=== PATIENT | female | born 1950 | race Caucasian/White ===

== ENCOUNTER 2017-07-25 12:14 | Inpatient (IN) | payer MEDICARE ==
[~2017-07-25] VITALS: Ht 157.5 cm; Wt 65.0 kg
--- NOTE | 2017-07-25 12:20 | NUR ---
AAOX3, [id number] FROM HOME FOR SOB, HYPOXIC IN THE FIELD AT 60'S %, BREATHING TX X1 HYPERTENSIVE 197/96, NITRO X 2 GIVEN BS-148. TACHYPNEIC AND LABORED BREATHING. SKIN IS WARM AND DRY. DR GUTIERREZ AT BS FOR EVAL. PLACED ON THE MONITOR.
[2017-07-25 12:51] LABS: EOSINOPHILS # (AUTO) 0.3 /CMM (0.0-0.7); HEMATOCRIT 42 % (33-45); HEMOGLOBIN 13.9 g/dL (11.5-14.8); LYMPHOCYTES # (AUTO) 2.4 /CMM (0.8-4.8); MEAN CORPUSCULAR HEMOGLOBIN 29 PG (26.0-33.0); MEAN CORPUSCULAR HGB CONC 34 g/dl (31.0-36.0); MEAN CORPUSCULAR VOLUME 87 fL (82-100); PLATELET COUNT (AUTO) 294 /CMM (150-450); RED BLOOD CELL COUNT(AUTO) 4.77 MIL/uL (4.0-5.2)
[2017-07-25 12:54] LABS: BASOPHILS % (AUTO) 0.2 % (0.0-2.0); EOSINOPHILS % (AUTO) 1.6 % (0.0-6.0); LYMPHOCYTES % (AUTO) 12.9 % (20.0-44.0); MONOCYTES # (AUTO) 0.8 /CMM (0.1-1.30); MONOCYTES % (AUTO) 4.3 % (2.0-12.0); NEUTROPHILS # (AUTO) 14.9 /CMM (1.8-8.9); RDW COEFFICIENT OF VARIATION 14.5 (11.5-15.0); WHITE BLOOD COUNT (AUTO) 18.4 K/uL (4.3-11.0)
[2017-07-25] MEDS ORDERED: methylPREDNISolone SOD SUCC 125 MG/2ML VIAL ONE (12:55)
[2017-07-25] MEDS ORDERED: methylPREDNISolone SOD SUCC 125 MG/2ML VIAL IV ONE (13:00)
[2017-07-25] MEDS ORDERED: ALBUTEROL FS 2.5 MG/3 ML VIAL.NEB CONTNEB ONE (13:00)
--- NOTE | 2017-07-25 13:00 | NUR ---
BREATHING TREATMENT AT
[2017-07-25 13:01] LABS: CALCIUM, SERUM 9.4 mg/dL (8.5-10.1); CARBON DIOXIDE 34 mmol/L (21-32); CHLORIDE 100 mmol/L (98-107); CREATININE 0.8 mg/dL (0.6-1.3); GLUCOSE 208 mg/dL (74-106); POTASSIUM 3.5 mmol/L (3.5-5.1); SODIUM SERUM 138 mmol/L (136-145); UREA NITROGEN, BLOOD 10 mg/dL (7-18)
[2017-07-25] MEDS ORDERED: ALBUTEROL FS 2.5 MG/3 ML VIAL.NEB ONE ×2 (13:01→14:58)
[2017-07-25 13:09] LABS: TROPONIN I < 0.017 ng/mL (0.00-0.056)
[2017-07-25 13:16] LABS: B-TYPE NATRIURETIC PEPTIDE 433 PG/ML (0-125)
[2017-07-25] MEDS ORDERED: LEVOFLOXACIN 750 MG /D5W 150ML 150 ML IV ONE ×2 (13:28→13:30)
[2017-07-25] MEDS ORDERED: ENALAPRILAT DIHYD. (2.5MG/ML) 1.25 MG/ML VIAL IV ONE (13:28)
[2017-07-25] MEDS ORDERED: ENALAPRILAT INJ (1.25 MG/ML) 1.25 MG/ML VIAL IV PRN (13:30)
[2017-07-25] MEDS ORDERED: LABETALOL 20 MG/4 ML VIAL IV ONE (13:30)
[2017-07-25] MEDS ORDERED: ALBU8.5H8 INH (14:02)
[2017-07-25] MEDS ORDERED: ATOR10TA PO (14:02)
[2017-07-25] MEDS ORDERED: ASPI-1152 PO (14:02)
[2017-07-25] MEDS ORDERED: FLUT1BLS IH (14:02)
--- NOTE | 2017-07-25 14:57 | NUR ---
BREATHING TREATMENT AT
[2017-07-25] MEDS ORDERED: IPRATROPIUM NEB FS 0.5 MG/2.5 ML AMPUL.NEB ONE (14:58)
[2017-07-25] MEDS ORDERED: IV NS 0.9% 500 ML BAG IV ONE ×2 (15:00→17:00)
[2017-07-25] MEDS ORDERED: IPRATROPIUM NEB FS 0.5 MG/2.5 ML AMPUL.NEB NEB ONE (15:00)
[2017-07-25] MEDS ORDERED: ALBUTEROL FS 2.5 MG/3 ML VIAL.NEB NEB ONE ×2 (15:00→17:00)
[2017-07-25 15:57] LABS: BAND % (MANUAL) 2 % (0.0-5.0); LYMPHOCYTES % (MANUAL) 15 % (16-48); MONOCYTES % (MANUAL) 5 % (0-11.0); NEUTROPHILS % (MANUAL) 76 (42-76); REACTIVE LYMPHOCYTES 2 % (0-0)
[2017-07-25] MEDS ORDERED: ACETAMINOPHEN 325 MG TABLET PO PRN (16:30)
[2017-07-25] MEDS ORDERED: ZOLPIDEM TARTRATE 5 MG TABLET PO PRN (16:30)
[2017-07-25] MEDS ORDERED: HYDROCODONE/APAP 5/325MG 1 EACH TABLET PO PRN (16:30)
[2017-07-25] MEDS ORDERED: ONDANSETRON HCL/PF 4 MG/2 ML VIAL IVP PRN (16:30)
[2017-07-25] MEDS ORDERED: MAG HYDROX/AL HYDROX/SIMETH 30 ML UDC PO PRN (16:30)
[2017-07-25] MEDS ORDERED: MAGNESIUM HYDROXIDE 30 ML UDC PO PRN (16:30)
[2017-07-25] MEDS: IPRATROPIUM NEB FS 0.5 MG/2.5 ML AMPUL.NEB NEB SCH ×2 (17:00→20:57)
[2017-07-25] MEDS: ALBUTEROL FS 2.5 MG/3 ML VIAL.NEB NEB SCH (17:00)
--- NOTE | 2017-07-25 17:20 | NUR ---
REPORT GIVEN TO LETITIA HOLLAND FOR CHELSY TELE [id number]
--- NOTE | 2017-07-25 17:20 | NUR ---
RECEIVED TELEPHONE SBAR REPORT ON THE PATIENT FROM ER
--- NOTE | 2017-07-25 17:35 | NUR ---
PATIENT ARRIVED TO THE UNIT VIA GURNEY.PATIENT IS ALERT/ORIENTED X4, FAMILY AT THE BEDSIDE. SKIN IS INTACT. DENIES PAIN AT THIS TIME. SPO2 93% ON 5L VIA FACE MASK. CHEST RISING EQUALLY BILATERALLY. VS WNL. ALL NEEDS ARE MET AT THIS TIME. PATIENT IS IN BED. BED IS LOCKED IN LOWEST POSITION, SIDE RAILS UP X3, BED ALARM IS ON. CALL LIGHT PATIENT/FAMILY EDUCATED TO USE THE CALL LIGHT TO CALL FOR ASSISTANCE. VERBALIZED UNDERSTANDING. WILL CONTINUE TO ASSESS/MONITOR.
[2017-07-25 17:45] VITALS: BP 155/67
--- NOTE | 2017-07-25 19:30 | NUR ---
RN NOTES RECEIVED PATIENT IN BED AWAKE, AO X 3, ABLE TO MAKE NEEDS KNOWN. NO ACUTE DISTRESS NOTED. DENIES ANY PAIN AT THIS TIME. SINUS TACH HR 127. IV SITE PATENT, INTACT; FLUSHED. SAFETY REMINDERS GIVEN. ON LOW BED WITH BILATERAL UPPER SIDE RAILS UP. CALL RACHEL WITHIN EASY REACH. WILL CONTINUE TO MONITOR.
[2017-07-25 20:00] VITALS: BP 152/78
--- NOTE | 2017-07-25 20:00 | NUR ---
MS RN CLOSING NOTE SBAR REPORT GIVEN TO THE STONE DRILLER NURSE. PATIENT IS ALERT/ORIENTED X4, FAMILY AT THE BEDSIDE. SKIN IS INTACT. DENIES PAIN AT THIS TIME. SPO2 93% ON 5L VIA FACE MASK. CHEST RISING EQUALLY BILATERALLY. VS WNL. ALL NEEDS ARE MET AT THIS TIME. PATIENT IS IN BED. BED IS LOCKED IN LOWEST POSITION, SIDE RAILS UP X3, BED ALARM IS ON. CALL LIGHT PATIENT/FAMILY EDUCATED TO USE THE CALL LIGHT TO CALL FOR ASSISTANCE. VERBALIZED UNDERSTANDING. ENDORSED TO THE STONE DRILLER FOR CHELSY.
[2017-07-25 20:46] VITALS: BP 152/78
[2017-07-25] MEDS: ATORVASTATIN 10 MG TABLET PO SCH (22:00)
[2017-07-26 00:24] VITALS: BP 163/82
--- NOTE | 2017-07-26 00:24 | NUR ---
RN NOTES PATIENT'S HR HAS REACHED 134 SINUS TACH. PER PATIENT, HER HR AT HOME IS 120-130S. DR. ANTUNEZ MADE AWARE WITH NO NEW ORDERS. WILL CONTINUE TO MONITOR.
[2017-07-26] MEDS: ALBUTEROL FS 2.5 MG/3 ML VIAL.NEB NEB SCH ×8 (00:50→23:23)
[2017-07-26] MEDS: IPRATROPIUM NEB FS 0.5 MG/2.5 ML AMPUL.NEB NEB SCH ×7 (00:50→23:23)
[2017-07-26 04:00] VITALS: BP 163/75
--- NOTE | 2017-07-26 06:00 | NUR ---
RN NOTES PATIENT AWAKE, RESPIRATIONS EVEN. DENIES ANY PAIN AT THIS TIME. NEEDS ATTENDED. SAFETY PRECAUTIONS AND COMFORT MEASURES IN PLACE. WILL GIVE REPORT TO DAY SHIFT FOR CONTINUITY OF CARE.
--- NOTE | 2017-07-26 07:30 | NUR ---
RN OPEN NOTES RECEIVED REPORT FROM SENIOR CARE SPECIALIST NURSE. PATIENT IS IN BED, AWAKE. ALERT AND ORIENTED TO NAME, PLACE AND TIME. PLACED PATIENT ON 2L NC, 99% SATURATION. NO SIGNS AND SYMPTOMS OF DISTRESS. BREATHING IS BILATERALLY EVEN AND UNLABORED. BED IN LOW POSITION, LOCKED AND TWO SIDE RAILS ARE UP. CALL LIGHT WITHIN REACH FOR SAFETY. WILL CONTINUE TO MONITOR AND ASSESS PATIENT THROUGH OUT MY SHIFT
[2017-07-26 08:00] VITALS: BP 134/85
[2017-07-26] MEDS: ASPIRIN EC 81 MG TABLET.DR PO SCH (08:48)
[2017-07-26] MEDS: AZITHROMYCIN 250 MG TABLET PO SCH (08:48)
[2017-07-26] MEDS ORDERED: methylPREDNISolone SOD SUCC 40 MG/ML VIAL IV SCH (09:00)
[2017-07-26 09:07] LABS: EOSINOPHILS % (AUTO) 0.1 % (0.0-6.0); HEMATOCRIT 37 % (33-45); HEMOGLOBIN 12.6 g/dL (11.5-14.8); LYMPHOCYTES # (AUTO) 0.4 /CMM (0.8-4.8); LYMPHOCYTES % (AUTO) 4.5 % (20.0-44.0); MEAN CORPUSCULAR HEMOGLOBIN 30 PG (26.0-33.0); MEAN CORPUSCULAR HGB CONC 34 g/dl (31.0-36.0); MEAN CORPUSCULAR VOLUME 89 fL (82-100); MONOCYTES # (AUTO) 0.5 /CMM (0.1-1.30); MONOCYTES % (AUTO) 4.6 % (2.0-12.0); NEUTROPHILS # (AUTO) 8.9 /CMM (1.8-8.9); NEUTROPHILS % (AUTO) 90.8 % (43.0-81.0); PLATELET COUNT (AUTO) 203 /CMM (150-450); RDW COEFFICIENT OF VARIATION 16.3 (11.5-15.0); RED BLOOD CELL COUNT(AUTO) 4.19 MIL/uL (4.0-5.2); WHITE BLOOD COUNT (AUTO) 9.8 K/uL (4.3-11.0)
[2017-07-26 09:42] LABS: CALCIUM, SERUM 9.2 mg/dL (8.5-10.1); CREATININE 0.6 mg/dL (0.6-1.3); MAGNESIUM 2.1 mg/dL (1.8-2.4); PHOSPHORUS 2.4 mg/dL (2.5-4.9); POTASSIUM 3.7 mmol/L (3.5-5.1)
--- NOTE | 2017-07-26 10:45 | NUR ---
PATIENT DESATURATING TO 78%. PATIENT PLACED ON MASK 6L AND SATURATING 95%. MD NOTIFIED. ABG ORDERED
--- NOTE | 2017-07-26 11:00 | NUR ---
RT TECH AT BEDSIDE TO DRAW ABG
[2017-07-26 11:13] LABS: ABG BASE EXCESS 3.5 mmol/L; ABG OXYGEN SATURATION 97.8 % (92.0-98.5); ABG PH 7.275 (7.350-7.450); ABG PO2 129.9 mmHg (75.0-100.0); AaDO2 73.7 mmHg; COHb 0.6 % (0.5-1.5); MetHb 0.9 % (0.0-1.5); O2Hb 96.3 % (94.0-97.0); SITE, ABG Right Radial; VENT MODE, BG SM 5 L
--- NOTE | 2017-07-26 11:15 | NUR ---
ABG RESULT COMMUNICATED TO MD DR LEIGH. REPEAT ABG AT 1500
[2017-07-26 12:00] VITALS: BP 149/75
[2017-07-26] MEDS ORDERED: K PHOS NEUTRAL 250 MG TABLET PO ONE (13:30)
--- NOTE | 2017-07-26 15:00 | NUR ---
RT TECH AT BEDSIDE TO DRAW ABG
[2017-07-26 15:12] LABS: ABG BASE EXCESS 8.4 mmol/L; ABG OXYGEN SATURATION 93.8 % (92.0-98.5); ABG PH 7.382 (7.350-7.450); ABG PO2 67.4 mmHg (75.0-100.0); AaDO2 74.8 mmHg; COHb 0.1 % (0.5-1.5); MetHb 0.8 % (0.0-1.5); SITE, ABG Right Radial; VENT MODE, BG NC 4L
--- NOTE | 2017-07-26 15:15 | NUR ---
G RESULTED AND COMMUNICATED TO DR LEIGH
[2017-07-26 16:00] VITALS: BP 135/68
[2017-07-26] MEDS: methylPREDNISolone SOD SUCC 40 MG/ML VIAL IV SCH (16:23)
--- NOTE | 2017-07-26 18:38 | NUR ---
RN CLOSED NOTES PATIENT IS IN BED, AWAKE. ALERT AND ORIENTED TO NAME, PLACE AND TIME. FAMILY MEMBER AT BEDSIDE. NO SIGNS AND SYMPTOMS OF DISTRESS. BREATHING IS BILATERALLY EVEN AND UNLABORED (IMPROVEMENT FROM EARLY AM). BED IN LOW POSITION, LOCKED AND TWO SIDE RAILS ARE UP. CALL LIGHT WITHIN REACH FOR SAFETY. WILL ENDORSE TO MACHINE PACKAGE SEALER NURSE
--- NOTE | 2017-07-26 19:25 | NUR ---
TELE/RN NOTES RECEIVED PT. SITTING UP IN BED. AWAKE, ALERT AND ORIENTED X4. BREATHING EVEN AND UNLABORED ON 4LPM O2 VIA NC. NO SOB, RESPIRATORY DISTRESS OR COMPLAINTS OF PAIN NOTED AT THIS TIME. PT. WITH EXTERNAL DOLL EYE SETTER PRESENT AND INTACT CURRENT RHYTHM = SINUS TACH HR 114. PT. WITH RIGHT AC 20 GAUGE IV SALINE LOCK PRESENT, PATENT AND INTACT. PT. WITH FAMILY MEMBER PRESENT AT BEDSIDE. BED LOCKED AND IN LOWEST POSITION, SIDE RAILS UP X2, CALL LIGHT WITHIN REACH, WILL CONTINUE TO MONITOR.
[2017-07-26 20:00] VITALS: BP 151/86
[2017-07-26] MEDS: ATORVASTATIN 10 MG TABLET PO SCH (21:59)
[2017-07-27] VITALS (10 sets, daily range): BP systolic 73–148; BP diastolic 32–92
[2017-07-27] MEDS: ALBUTEROL FS 2.5 MG/3 ML VIAL.NEB NEB SCH ×3 (03:22→13:00)
[2017-07-27] MEDS: IPRATROPIUM NEB FS 0.5 MG/2.5 ML AMPUL.NEB NEB SCH ×5 (03:22→20:05)
--- NOTE | 2017-07-27 06:46 | NUR ---
TELE/RN NOTES PT. IS SITTING UP IN BED RESTING. BREATHING EVEN AND UNLABORED ON 4LPM O2 VIA NC. NO SOB, RESPIRATORY DISTRESS OR COMPLAINTS OF PAIN NOTED AT THIS TIME. PT. WITH EXTERNAL LICENSING WORKER PRESENT AND INTACT CURRENT RHYTHM = SINUS TACH HR 117. PT. WITH RIGHT AC 20 GAUGE IV SALINE LOCK PRESENT, PATENT AND INTACT. ALL PT. NEEDS MET. PT. WITH FAMILY MEMBER PRESENT AT BEDSIDE. BED LOCKED AND IN LOWEST POSITION, SIDE RAILS UP X2, CALL LIGHT WITHIN REACH, WILL ENDORSE TO DAYSHIFT NURSE FOR CONTINUITY OF CARE.
--- NOTE | 2017-07-27 07:45 | NUR ---
RN OPEN NOTES RECEIVED REPORT FROM SHAFTING CLEANER NURSE. PATIENT IS IN BED, AWAKE. ALERT AND ORIENTED TO NAME, PLACE AND TIME. PLACED PATIENT ON 3L NC, 92% SATURATION. NO SIGNS AND SYMPTOMS OF DISTRESS. BREATHING IS BILATERALLY EVEN AND UNLABORED. BED IN LOW POSITION, LOCKED AND TWO SIDE RAILS ARE UP. CALL LIGHT WITHIN REACH FOR SAFETY. WILL CONTINUE TO MONITOR AND ASSESS PATIENT THROUGH OUT MY SHIFT
[2017-07-27] MEDS: AZITHROMYCIN 250 MG TABLET PO SCH (08:49)
[2017-07-27] MEDS: ASPIRIN EC 81 MG TABLET.DR PO SCH (08:50)
[2017-07-27] MEDS: methylPREDNISolone SOD SUCC 40 MG/ML VIAL IV SCH ×2 (08:50→16:21)
[2017-07-27 09:10] LABS: EOSINOPHILS # (AUTO) 0.1 /CMM (0.0-0.7); EOSINOPHILS % (AUTO) 0.6 % (0.0-6.0); HEMATOCRIT 33 % (33-45); HEMOGLOBIN 11.4 g/dL (11.5-14.8); LYMPHOCYTES # (AUTO) 0.4 /CMM (0.8-4.8); LYMPHOCYTES % (AUTO) 2.5 % (20.0-44.0); MEAN CORPUSCULAR HEMOGLOBIN 30 PG (26.0-33.0); MEAN CORPUSCULAR HGB CONC 34 g/dl (31.0-36.0); MEAN CORPUSCULAR VOLUME 89 fL (82-100); MONOCYTES # (AUTO) 0.5 /CMM (0.1-1.30); MONOCYTES % (AUTO) 3.6 % (2.0-12.0); NEUTROPHILS # (AUTO) 13.6 /CMM (1.8-8.9); NEUTROPHILS % (AUTO) 93.3 % (43.0-81.0); PLATELET COUNT (AUTO) 238 /CMM (150-450); RDW COEFFICIENT OF VARIATION 15.9 (11.5-15.0); RED BLOOD CELL COUNT(AUTO) 3.77 MIL/uL (4.0-5.2); WHITE BLOOD COUNT (AUTO) 14.6 K/uL (4.3-11.0)
[2017-07-27 10:05] LABS: CREATININE 0.6 mg/dL (0.6-1.3); POTASSIUM 3.4 mmol/L (3.5-5.1)
--- NOTE | 2017-07-27 13:41 | NUR ---
RT PATIENT REFUSED TX AT THIS TIME. SP02 @ 97%, HR 115. NO SOB NOTED.
--- NOTE | 2017-07-27 16:53 | NUR ---
PATIENT REFUSED TX AT THIS TIME. SP02 @ 94%, HR 117. NURSE, STEPHY KEARNS. NO SOB NOTED.
[2017-07-27] MEDS ORDERED: SALINE NASAL SPRAY 0.65% 1 BOTTLE BOTTLE NS PRN (17:00)
[2017-07-27] MEDS ORDERED: IV 1/2NS 1000 ML 1,000 ML IV SCH ×2 (17:00→23:18)
--- NOTE | 2017-07-27 18:57 | NUR ---
RN CLOSED NOTES PATIENT IS IN BED, AWAKE. ALERT AND ORIENTED TO NAME, PLACE AND TIME. FAMILY MEMBER AT BEDSIDE. NO SIGNS AND SYMPTOMS OF DISTRESS. BREATHING IS BILATERALLY EVEN AND UNLABORED (IMPROVEMENT FROM EARLY AM). BED IN LOW POSITION, LOCKED AND TWO SIDE RAILS ARE UP. CALL LIGHT WITHIN REACH FOR SAFETY. WILL ENDORSE TO BEAUTY OPERATOR APPRENTICE NURSE
--- NOTE | 2017-07-27 19:20 | NUR ---
MS/RN NOTES RECEIVED PT. SITTING UP IN BED. AWAKE, ALERT AND ORIENTED X3. BREATHING EVEN AND UNLABORED ON 3LPM O2 VIA NC. NO SOB, RESPIRATORY DISTRESS OR COMPLAINTS OF PAIN NOTED AT THIS TIME. PT. WITH RIGHT AC 20 GAUGE IV SALINE LOCK PRESENT, PATENT AND INTACT ADMINISTERING TO PT. 1/2 NS @ 75 ML/HR. PT. WITH FAMILY MEMBERS PRESENT AT BEDSIDE. BED LOCKED AND IN LOWEST POSITION, SIDE RAILS UP X2, CALL LIGHT WITHIN REACH, WILL CONTINUE TO MONITOR.
--- NOTE | 2017-07-27 20:40 | NUR ---
MS/RN NOTES PT. RECENTLY FINISHED BREATHING TREATMENT AND IS COMPLAINING OF SHORTNESS OF BREATH ON 4LPM O2 VIA NC. PLACED PT. ON O2 MASK @6LPM. PT. O2 SAT IS SLOWLY INCREASING TO 92%. WILL CONTINUE TO MONITOR.
--- NOTE | 2017-07-27 20:55 | NUR ---
MS/RN NOTES PT. IS ON O2 MASK @ 8LPM O2 SAT 94% PT. STILL APPEARS TO HAVE DIFFICULTY BREATHING. PT. HEART RATE IS ELEVATED 140'S-151. CALLED [facility] PHYSICAL METALLURGIST DR. LAST TO NOTIFY HER OF PT. CONDITION, PER PHYSICAL METALLURGIST SERVICE DR. LAST WILL BE PAGED. AWAITING CALL BACK FROM DR. LAST. WILL CONTINUE TO MONITOR PT.
--- NOTE | 2017-07-27 21:02 | NUR ---
MS/RN NOTES PT. IS HAVING SHORTNESS OF BREATH AND IS IN RESPIRATORY DISTRESS ON O2 MASK @ 10LPM AND IS DESATTING TO 85%. CALLED [facility]PON[facility]. PLACED PT. ON TELE MONITOR CURRENT RHYTHM = SINUS TACHYCARDIA PT. BLOOD SUGAR IS 224 MG/DL. PT. VITAL SIGNS = BP 164/80, HR 151, O2 SAT 99% ON 15 LPM NON REBREATHER MASK. RR 38. SPOKE WITH DR. LAST AND NOTIFIED HER OF PT. CONDITION AND THAT [facility] RESPON[facility] WAS CALLED. PER DR. LAST NEW ORDERS: STAT ABG AND STAT CHEST XRAY. WILL CARRY OUT ORDERS. WILL CONTINUE TO MONITOR.
--- NOTE | 2017-07-27 21:30 | NUR ---
MS/RN NOTES NOTIFIED DR. LAST PT. ABG RESULTS PH 7.218 PCO2 117.2, PO2 = 76.3 PT. O2 SAT 99% ON NON-REBREATHER MASK @ [address] LAST NEW ORDERS: TRANSFER PT. TO ICU FOR BIPAP. WILL CARRY OUT ORDERS. TRANSFERRED PT. TO ICU ROOM 265 VIA GURNEY FOLLOWING ACLS PROTOCOL ACCOMPANIED BY CHARGE NURSE AND CONSULTING TECHNICAL DIRECTOR. PT. BELONGINGS AND CHART PRESENT ON BED. GAVE REPORT AND ENDORSED PT. TO LETITIA ECHOLS FOR CONTINUITY OF CARE.
--- NOTE | 2017-07-27 21:32 | NUR ---
WARP DYEING VAT TENDER RCD PT FROM 3W S/P DEMAND MANAGER; PENDING ORDERS FROM . CALL PLACED TO DR LAST. DARLYN CALLED FOR CXR RESULTS. PT PLACED ON BIPAP BY RT 25/ 16 75%. HR 145. FAMILY AT BEDSIDE.
[2017-07-27 21:36] LABS: ABG BASE EXCESS 13.7 mmol/L; ABG OXYGEN SATURATION 92.1 % (92.0-98.5); ABG PCO2 117.2 mmHg (35.0-45.0); ABG PH 7.218 (7.350-7.450); ABG PO2 76.3 mmHg (75.0-100.0); AaDO2 222.6 mmHg; COHb 0.2 % (0.5-1.5); MetHb 1.1 % (0.0-1.5); O2Hb 90.9 % (94.0-97.0); SITE, ABG Right Radial; VENT MODE, BG Simple Mask
[2017-07-27] MEDS: ATORVASTATIN 10 MG TABLET PO SCH (21:42)
--- NOTE | 2017-07-27 21:56 | NUR ---
STADIUM MANAGER DR LAST AT BEDSIDE TO EVALUATE PT; ORDERS RECEIVED. MD S/W FAMILY REGARDING PLAN OF CARE.
[2017-07-27] MEDS ORDERED: FUROSEMIDE 40 MG/4 ML VIAL IV ONE (22:00)
[2017-07-27] MEDS ORDERED: FUROSEMIDE 40 MG/4 ML VIAL ONE (22:18)
--- NOTE | 2017-07-27 22:18 | NUR ---
MOUSE BREEDER DUARTE CATHETER INSERTED 350 ML YELLOW URINE W/SEDIMENT.
--- NOTE | 2017-07-27 22:40 | NUR ---
PEDIATRICS PHYSICIAN PER DR SHALA LUNA MD TO INTUBATE. PT RADHA MORELAND [phone] AND LUIS EDUARDO BURKS [phone] AGREE WITH PLAN OF CARE.
[2017-07-27] MEDS ORDERED: ETOMIDATE 2 MG/ML VIAL ONE (22:54)
[2017-07-27] MEDS ORDERED: ROCURONIUM BROMIDE 50 MG/5 ML ONE (22:54)
[2017-07-27] MEDS ORDERED: ENOXAPARIN SODIUM 40 MG/0.4 ML DISP.SYRIN SQ SCH (23:00)
[2017-07-27] MEDS ORDERED: PROPOFOL 100 ML IV PRN (23:00)
[2017-07-27] MEDS ORDERED: PROPOFOL 100 ML ONE (23:15)
[2017-07-27] MEDS ORDERED: ENOXAPARIN SODIUM 40 MG/0.4 ML DISP.SYRIN SQ ONE (23:15)
[2017-07-28] VITALS (50 sets, daily range): BP systolic 69–131; BP diastolic 29–83
[2017-07-28 00:50] LABS: ABG BASE EXCESS 12.9 mmol/L; ABG PCO2 43.3 mmHg (35.0-45.0); ABG PH 7.548 (7.350-7.450); ABG PO2 487.8 mmHg (75.0-100.0); AaDO2 181.9 mmHg; COHb 0.4 % (0.5-1.5); MetHb 1.2 % (0.0-1.5); SITE, ABG Right Radial; VT, ABG 450 mL
[2017-07-28] MEDS: IPRATROPIUM NEB FS 0.5 MG/2.5 ML AMPUL.NEB NEB SCH ×6 (01:00→23:54)
[2017-07-28 05:17] LABS: HEMATOCRIT 32 % (33-45); HEMOGLOBIN 10.9 g/dL (11.5-14.8); LYMPHOCYTES # (AUTO) 0.4 /CMM (0.8-4.8); LYMPHOCYTES % (AUTO) 3.1 % (20.0-44.0); MEAN CORPUSCULAR HEMOGLOBIN 30 PG (26.0-33.0); MEAN CORPUSCULAR HGB CONC 34 g/dl (31.0-36.0); MEAN CORPUSCULAR VOLUME 89 fL (82-100); MONOCYTES # (AUTO) 0.5 /CMM (0.1-1.30); NEUTROPHILS # (AUTO) 12.6 /CMM (1.8-8.9); NEUTROPHILS % (AUTO) 92.9 % (43.0-81.0); PLATELET COUNT (AUTO) 233 /CMM (150-450); RDW COEFFICIENT OF VARIATION 16.1 (11.5-15.0); RED BLOOD CELL COUNT(AUTO) 3.63 MIL/uL (4.0-5.2); WHITE BLOOD COUNT (AUTO) 13.6 K/uL (4.3-11.0)
[2017-07-28 05:40] LABS: CALCIUM, SERUM 8.7 mg/dL (8.5-10.1); CREATININE 1.3 mg/dL (0.6-1.3); MAGNESIUM 2.1 mg/dL (1.8-2.4); PHOSPHORUS 1.1 mg/dL (2.5-4.9); POTASSIUM 3.8 mmol/L (3.5-5.1)
--- NOTE | 2017-07-28 07:33 | NUR ---
RT PATIENT RECEIVED ON MECHANICAL VENTILATION OF AC 16, 450, 40%, +5. SUCTION DONE, ETT TUBE SECURED AND PATENT. ALARMS ON AND AUDIBLE. PATIENT STABLE. WILL MONITOR T/O SHIFT. Addendum: 07/28/17 at 1041 by COLLEEN STOREY RT Amended: Links added. Addendum: 07/28/17 at 1754 by COLLEEN STOREY RT PATIENT RECEIVED ON 7.5 ETT TUBE @ 23 LIP LINE.
[2017-07-28] MEDS ORDERED: PROPOFOL 10MG/ML 50ML 50 ML IV PRN (08:00)
[2017-07-28] MEDS: AZITHROMYCIN 250 MG TABLET PO SCH (09:00)
[2017-07-28] MEDS: ASPIRIN EC 81 MG TABLET.DR PO SCH (09:00)
[2017-07-28] MEDS ORDERED: FAMOTIDINE/PF INJ 20 MG/2 ML VIAL IV SCH (09:00)
[2017-07-28] MEDS: methylPREDNISolone SOD SUCC 40 MG/ML VIAL IV SCH (09:18)
[2017-07-28] MEDS: FAMOTIDINE/PF INJ 20 MG/2 ML VIAL IV SCH (09:38)
[2017-07-28] MEDS ORDERED: FENTANYL CITRAT IV 2,500 MCG in IV NS 0.9% 200 ML IV PRN (11:00)
[2017-07-28] MEDS ORDERED: MIDAZOLAM HCL 100 MG in IV NS 0.9% 80 ML IV PRN (11:00)
[2017-07-28] MEDS ORDERED: FENTANYL CITRATE IV 1,250 MCG in IV NS 0.9% 250ML IV PRN (12:00)
[2017-07-28] MEDS ORDERED: FENTANYL CITRATE IV 1,250 MCG in IV NS 0.9% 225 ML IV PRN (12:00)
[2017-07-28] MEDS: AZITHROMYCIN 500 MG in IV D5W 250 ML IV SCH (13:23)
[2017-07-28] MEDS ORDERED: ALBUTEROL FS 2.5 MG/0.5 ML VIAL.NEB NEB SCH (13:30)
[2017-07-28] MEDS: ALBUTEROL FS 2.5 MG/0.5 ML VIAL.NEB NEB SCH ×3 (14:57→23:54)
[2017-07-28] MEDS: methylPREDNISolone SOD SUCC 125 MG/2ML VIAL IV SCH ×3 (15:44→23:51)
--- NOTE | 2017-07-28 19:00 | NUR ---
RT RECEIVED PT ON A VENT INTUBATED W/ 7.5 ETT MARKED 23CM AT THE LIP. BILATERAL B/S. ETT SECURE WITH ANCHOR FAST. VENT ALARMS CHECKED AND AUDIBLE. VENT PLUGGED IN RED OUTLET. AMBU BAG NOTED HOB. SX WITH SML WHITE WITH BLOOD TINGED SECRETIONS. NO RESP DISTRESS NOTED AT THIS TIME. WILL CONTINUE TO MONITOR T/O SHIFT.
[2017-07-28] MEDS: Potassium Chloride 20 MEQ in IV NS 0.9% 1,000 ML IV PRN (19:57)
--- NOTE | 2017-07-28 20:51 | NUR ---
received pt from day shift, sedated on versed at 1mg, receiving Fentanyl at 25mcg, SR, on the vent, lungs diminished, no edema, NPO, restraints on, f/c OK output, v/s stable, no pain, pt turned and repositioned.
[2017-07-28] MEDS: ENOXAPARIN SODIUM 40 MG/0.4 ML DISP.SYRIN SQ SCH (21:25)
[2017-07-28] MEDS: ATORVASTATIN 10 MG TABLET PO SCH (21:26)
[2017-07-29] VITALS (50 sets, daily range): BP systolic 91–147; BP diastolic 50–99
--- NOTE | 2017-07-29 00:26 | NUR ---
pt is resting in the bed, sedated, v/s stable, no pain, pt turned and repositioned q2hrs.
[2017-07-29] MEDS: IPRATROPIUM NEB FS 0.5 MG/2.5 ML AMPUL.NEB NEB SCH ×6 (03:38→23:39)
[2017-07-29] MEDS: ALBUTEROL FS 2.5 MG/0.5 ML VIAL.NEB NEB SCH ×6 (03:38→23:39)
--- NOTE | 2017-07-29 04:22 | NUR ---
pt is resting in the bed, no acute distress overnight, SR, sedated on versed at 1mg, receiving Fentanyl at 25mcg, v/s stable, no pain, pt cleaned, changed and repositioned q2hrs.
[2017-07-29] MEDS: Potassium Chloride 20 MEQ in IV NS 0.9% 1,000 ML IV PRN ×2 (04:38→13:29)
[2017-07-29] MEDS: methylPREDNISolone SOD SUCC 125 MG/2ML VIAL IV SCH ×4 (05:10→23:09)
[2017-07-29 05:36] LABS: EOSINOPHILS # (AUTO) 0.1 /CMM (0.0-0.7); EOSINOPHILS % (AUTO) 0.7 % (0.0-6.0); HEMATOCRIT 30 % (33-45); HEMOGLOBIN 10.2 g/dL (11.5-14.8); LYMPHOCYTES # (AUTO) 0.3 /CMM (0.8-4.8); LYMPHOCYTES % (AUTO) 3.1 % (20.0-44.0); MEAN CORPUSCULAR HEMOGLOBIN 30 PG (26.0-33.0); MEAN CORPUSCULAR HGB CONC 34 g/dl (31.0-36.0); MEAN CORPUSCULAR VOLUME 87 fL (82-100); MONOCYTES # (AUTO) 0.4 /CMM (0.1-1.30); MONOCYTES % (AUTO) 4.4 % (2.0-12.0); NEUTROPHILS # (AUTO) 7.5 /CMM (1.8-8.9); NEUTROPHILS % (AUTO) 91.8 % (43.0-81.0); PLATELET COUNT (AUTO) 220 /CMM (150-450); RDW COEFFICIENT OF VARIATION 14.6 (11.5-15.0); RED BLOOD CELL COUNT(AUTO) 3.44 MIL/uL (4.0-5.2); WHITE BLOOD COUNT (AUTO) 8.3 K/uL (4.3-11.0)
[2017-07-29 05:58] LABS: CALCIUM, SERUM 8.2 mg/dL (8.5-10.1); MAGNESIUM 2.3 mg/dL (1.8-2.4); PHOSPHORUS 2.1 mg/dL (2.5-4.9); POTASSIUM 3.9 mmol/L (3.5-5.1)
--- NOTE | 2017-07-29 07:00 | NUR ---
ICU INITIAL NOTE RECEIVED REPORT FROM LETITIA ALDRICH, PT WAS RECEIVED SEDATION, INTUBATED, UNABLE TO FOLLOW COMMANDS, UNABLE TO MOVE EXTREMITIES, UNABLE TO TRACK, PT HAS ETT 7.12/08 LIPLINE AC 14 TV 400 FIO2 40% PEEP 0, SATING WELL, NO S/S OF RESP.DISTRESS OR SOB NOTED AT THIS TIME, BREATHING IS UNLABORED AND EVEN, PT SUCTIONED, ORAL CARE PROVIDED,PT IS ON BEDSIDE MONITOR SHOWING SR IN 80'S, NO S/S OF CHEST PAIN OR DISCOMFORT AT THIS TIME, PT HAS OGT, CLAMPED AT THIS TIME, INTACT/PATENT , FLUSHING WELL, PT HAS F/C DRAINING URINE TO GRAVITY, PT HAS RIGHT EJ#20G, R WRIST # 20G, R HAND #20G, C/D/I/PATENT, FLUSHING WELL, RUNNING NS W/20MEQ K @ 100ML/HR, VERSED @ MG/HR, FENTANYL @25MCG/HR NO S/S OF INFECTION/ INFILTRATION NOTED AT THIS TIME, ALL SAFETY MEASURES IN PLACE AT ALL TIMES, CALL LIGHT WITHIN EASY REACH, WILL MONITOR PT CLOSELY FOR CHANGES Addendum: 07/29/17 at 0757 by JERRY NORTH RN ADDED: PT HAS BILATERAL WRIST RESTRAINTS IN PLACE, RELEASED AND SKIN CHECK COMPLETED.
--- NOTE | 2017-07-29 07:40 | NUR ---
RT FOUND PT ON 40% FiO2. NO SIGNS OF DISTRESS NOTED AT THIS TIME. WILL CONTINUE TO MONITOR THE PATIENT. Addendum: 07/29/17 at 1825 by MARK MANCERA RT Amended: Links added.
[2017-07-29] MEDS: Z GUARD REMEDY 2 OZ OINT TP PRN (08:18)
[2017-07-29] MEDS: ASPIRIN EC 81 MG TABLET.DR PO SCH (08:18)
[2017-07-29] MEDS: FAMOTIDINE/PF INJ 20 MG/2 ML VIAL IV SCH (08:18)
--- NOTE | 2017-07-29 08:30 | NUR ---
SEDATION VACATION- VERSED AND FENTANYL TURNED OFF PER DR. GOLDSTEIN ORDER. PT IS GOING TO BE WEANED. PT UNABLE TO FOLLOW COMMANDS AT THIS TIME, PT RESPONDS TO PAIN AND TOUCH STIMULI, BILATERAL WRIST RESTRAINTS IN PLACE FOR PT SAFETY, WILL MONITOR PT CLOSELY
[2017-07-29] MEDS: AZITHROMYCIN 500 MG in IV D5W 250 ML IV SCH (10:00)
--- NOTE | 2017-07-29 10:51 | NUR ---
icu note- two sons and daughter at bedside, updated family on pt's condition, answered all questions and concerns, pt is able to open eyes and responsed to pain and tactile stimuli, able to grab son's hand and move bilateral feet, pt still not fully following commands, will monitor closely
--- NOTE | 2017-07-29 11:39 | NUR ---
RT RECEIVED PT ON A VENT INTUBATED W/ 7.5 ETT, 23CM AT THE LIP. BILATERAL BREATH SOUNDS ON AUSCULTATION. CREAM DUMPER DONE. VENT ALARMS ON AND FUNCTIONING PROPERLY. VENT PLUGGED IN RED OUTLET. AMBU BAG AT HEAD OF BED. SUCTIONED SMALL AMOUNTS OF BLOOD TINGED SECRETIONS. NO RESPIRATORY DISTRESS NOTED AT THIS TIME. WILL CONTINUE TO MONITOR THE PATIENT FOR ANY CHANGES. Addendum: 07/29/17 at 1825 by MARK MANCERA RT Amended: Links added.
--- NOTE | 2017-07-29 13:23 | NUR ---
icu note- received orders from dr. west to d/c fentanyl and versed and start Diprivan. wasted fentanyl 175 ml, witnessed by jovanny garcia, versed 75ml, witnessed by jose paul
[2017-07-29] MEDS: PROPOFOL 10MG/ML 50ML 50 ML IV PRN ×4 (13:42→23:54)
--- NOTE | 2017-07-29 13:48 | NUR ---
icu note- started diprivan, will titrate per protocol for pt comfort and safety, will monitor closely
[2017-07-29] MEDS ORDERED: K PHOS NEUTRAL 250 MG TABLET PO ONE (14:00)
[2017-07-29] MEDS ORDERED: NEUTRA PHOS 1 POWD.PACKET GT ONE (14:30)
--- NOTE | 2017-07-29 19:50 | NUR ---
Received pt on vent support, pt stable , no sob or distress noted om current settings, alarms on and audible, ventilator is plugged into red outlet, ambu bag at bedside. Addendum: 07/29/17 at 195 by KLEBER CHEN RT Amended: Links added.
--- NOTE | 2017-07-29 20:33 | NUR ---
received pt from day shift, sedated on Diprivan at 25mcg, SR, ST, on the vent, lungs diminished, no edema, f/c OK output, OG tube clamped, restraints on, v/s stable, no pain, pt turned and repositioned.
[2017-07-29] MEDS: ATORVASTATIN 10 MG TABLET PO SCH (21:46)
[2017-07-29] MEDS: ENOXAPARIN SODIUM 40 MG/0.4 ML DISP.SYRIN SQ SCH (21:47)
[2017-07-30] VITALS (42 sets, daily range): BP systolic 95–140; BP diastolic 52–81
--- NOTE | 2017-07-30 00:21 | NUR ---
pt is resting in the bed, sedated on Diprivan at 25mcg, v/s stable, no pain, pt turned and repositioned q2hrs.
[2017-07-30] MEDS ORDERED: IV PREMIX NS +20MEQ KCL 1 L IV ONE ×2 (00:38→22:11)
[2017-07-30] MEDS: Potassium Chloride 20 MEQ in IV NS 0.9% 1,000 ML IV PRN ×3 (00:59→22:46)
[2017-07-30] MEDS: PROPOFOL 10MG/ML 50ML 50 ML IV PRN ×4 (03:19→21:04)
--- NOTE | 2017-07-30 04:17 | NUR ---
pt is resting in the bed, no acute distress overnight, SR, tolerates feeding, v/s stable, no pain, pt cleaned, changed and repositioned q2hrs.
[2017-07-30] MEDS: ALBUTEROL FS 2.5 MG/0.5 ML VIAL.NEB NEB SCH ×5 (04:21→19:06)
[2017-07-30] MEDS: IPRATROPIUM NEB FS 0.5 MG/2.5 ML AMPUL.NEB NEB SCH ×5 (04:21→19:06)
[2017-07-30] MEDS: methylPREDNISolone SOD SUCC 125 MG/2ML VIAL IV SCH ×3 (05:13→17:06)
[2017-07-30 05:24] LABS: CALCIUM, SERUM 7.9 mg/dL (8.5-10.1); CREATININE 0.6 mg/dL (0.6-1.3); PHOSPHORUS 2.3 mg/dL (2.5-4.9); POTASSIUM 4.4 mmol/L (3.5-5.1)
--- NOTE | 2017-07-30 07:00 | NUR ---
ICU INITIAL NOTE RECEIVED REPORT FROM LETITIA ALDRICH, PT WAS RECEIVED SEDATION,ABLE TO RESPOND TO PAIN AND TOUCH STIMULI, INTUBATED, PT HAS ETT 7.12/08 LIPLINE AC 14 TV 400 FIO2 40% PEEP 0, SATING WELL, NO S/S OF RESP.DISTRESS OR SOB NOTED AT THIS TIME, BREATHING IS UNLABORED AND EVEN, PT SUCTIONED, ORAL CARE PROVIDED,PT IS ON BEDSIDE MONITOR SHOWING SR IN 80'S, NO S/S OF CHEST PAIN OR DISCOMFORT AT THIS TIME, PT HAS OGT, CLAMPED AT THIS TIME, INTACT/PATENT , FLUSHING WELL, PT HAS F/C DRAINING MINIMAL URINE TO GRAVITY, PT HAS RIGHT EJ#20G, R WRIST # 20G, R HAND #20G, C/D/I/PATENT, FLUSHING WELL, RUNNING NS W/20MEQ K @ 100ML/HR, DIPRIVAN @ 25MCG/MIN, NO S/S OF INFECTION/ INFILTRATION NOTED AT THIS TIME, PT HAS BILATERAL WRIST RESTRAINTS IN PLACE, RELEASED AND SKIN CHECK COMPLETED. PT IS NOTED WITH SKIN ISSUES, ALL SAFETY MEASURES IN PLACE AT ALL TIMES, CALL LIGHT WITHIN EASY REACH, WILL MONITOR PT CLOSELY FOR CHANGES
[2017-07-30 07:58] LABS: HEMATOCRIT 31 % (33-45); HEMOGLOBIN 10.2 g/dL (11.5-14.8); LYMPHOCYTES # (AUTO) 0.2 /CMM (0.8-4.8); LYMPHOCYTES % (AUTO) 1.7 % (20.0-44.0); MEAN CORPUSCULAR HEMOGLOBIN 30 PG (26.0-33.0); MEAN CORPUSCULAR HGB CONC 33 g/dl (31.0-36.0); MEAN CORPUSCULAR VOLUME 90 fL (82-100); MONOCYTES # (AUTO) 0.5 /CMM (0.1-1.30); MONOCYTES % (AUTO) 3.9 % (2.0-12.0); NEUTROPHILS # (AUTO) 11.3 /CMM (1.8-8.9); NEUTROPHILS % (AUTO) 94.4 % (43.0-81.0); PLATELET COUNT (AUTO) 242 /CMM (150-450); RDW COEFFICIENT OF VARIATION 15.9 (11.5-15.0); RED BLOOD CELL COUNT(AUTO) 3.41 MIL/uL (4.0-5.2); WHITE BLOOD COUNT (AUTO) 11.9 K/uL (4.3-11.0)
--- NOTE | 2017-07-30 08:00 | NUR ---
sedation vacation- diprivan titrate per protocol, pt open eyes, follow simple commands, able to move all extremities, pt nods to yes and no question, will monitor pt closely, wrist restraints remain in place for pt safety
[2017-07-30] MEDS: FAMOTIDINE/PF INJ 20 MG/2 ML VIAL IV SCH (08:09)
[2017-07-30] MEDS: Z GUARD REMEDY 2 OZ OINT TP PRN (08:10)
[2017-07-30] MEDS: ASPIRIN EC 81 MG TABLET.DR PO SCH (08:10)
--- NOTE | 2017-07-30 09:00 | NUR ---
icu note- dr. west made rounds, ordered weaning for pt, rt aware, will monitor pt closely
--- NOTE | 2017-07-30 09:14 | NUR ---
icu note- family at bedside, updated family on pt condition, answered all questions and concerns
--- NOTE | 2017-07-30 09:24 | NUR ---
icu note- pt was placed on simv mode, rate 4 pressure support 12 peep 5 fio2 40%, breathing is unlabored and even, no s/s of sob or resp. distress noted at this time, o2 saturation is 96%, family at bedside, will monitor pt closely
[2017-07-30] MEDS: AZITHROMYCIN 500 MG in IV D5W 250 ML IV SCH (11:24)
--- NOTE | 2017-07-30 12:03 | NUR ---
WOUND CARE CONSULT SEISMIC ENGINEER ATTEMPTED TO SEE PATIENT EARLIER TODAY AND WEANING TRIAL ONGOING AT THAT TIME. MEDICAL RECORD REVIEWED AND PHOTO IMAGES REVIEWED, 1ST STEP LOW AIRLOSS MATTRESS IN PLACE AND ALL PRESSURE ULCER PREVENTION MEASURES NOTED TO BE IN PLACE. RECOMMEND CONTINUE USE OF MOISTURE BARRIER OINTMENT TO BUTTOCKS, PERINEAL REGIONS CURRENTLY ORDERED. CONTINUE TURNING SCHED Q 2 HOURS PATIENT CONDITION PERMITS, AND HEEL FLOATING. WILL SEE PATIENT CONDITION PERMITS. PATIENT WITH CURRENT GIO AT 12. FAMILY AT BEDSIDE.
[2017-07-30 13:09] LABS: ABG BASE EXCESS 2.3 mmol/L; ABG PCO2 82.2 mmHg (35.0-45.0); ABG PH 7.221 (7.350-7.450); ABG PO2 99.9 mmHg (75.0-100.0); AaDO2 90.8 mmHg; COHb 0.3 % (0.5-1.5); MetHb 0.9 % (0.0-1.5); O2Hb 94.7 % (94.0-97.0); PEEP,BG 5 cm H2O; SITE, ABG Right Radial
--- NOTE | 2017-07-30 15:00 | NUR ---
icu note- pt failed weaning mode, pt was place back on original vent settings.
[2017-07-30] MEDS ORDERED: NEUTRA PHOS 1 POWD.PACKET GT ONE (16:00)
--- NOTE | 2017-07-30 18:34 | NUR ---
icu note- pt was given a complete bed bath, all wound treatments carried out, turned and repositioned q2h/prn, pt was kept clean and dry
--- NOTE | 2017-07-30 19:10 | NUR ---
PT REC'D INTUBATED WITH ETT TUBE 7.5 AT 23CM ON THE LIP. PT STABLE ON CUREENT [facility] VENT SETTINGS NOTED. SX DONE, SMALL AMOUNT OF THICK WHITE/YELLOW. BS EQUAL AND COURSE. VENT PLUGGED INTO RED OUTLET. AMBU BAG AT BEDSIDE. WILL CONTINUE TO MONITOR FURTHER. Addendum: 07/30/17 at 1915 by BELINDA EVANS RT Amended: Links added.
--- NOTE | 2017-07-30 20:05 | NUR ---
GAS EXAMINER DF RECEIVED PT TO ROOM#265 PT ADMIT FOR COPD EXCAB INTUBATED TOLERATING CURRENT VENT SETTINGS. PT SEDATED ON PROPOFOL AT 25 MCG. AROUSES TO STIMULI.NO ACUTE DISTRESS NOTED. PHYSICAL ASSESSMENT COMPLETED NO ACUTE CHANGES NOTED FROM PREVIOUS ASSESSMENT.
[2017-07-30] MEDS: ENOXAPARIN SODIUM 40 MG/0.4 ML DISP.SYRIN SQ SCH (21:11)
[2017-07-30] MEDS: ATORVASTATIN 10 MG TABLET PO SCH (22:44)
[2017-07-31] VITALS (41 sets, daily range): BP systolic 107–155; BP diastolic 55–88
[2017-07-31] MEDS: IPRATROPIUM NEB FS 0.5 MG/2.5 ML AMPUL.NEB NEB SCH ×7 (00:01→23:39)
[2017-07-31] MEDS: ALBUTEROL FS 2.5 MG/0.5 ML VIAL.NEB NEB SCH ×7 (00:01→23:39)
[2017-07-31] MEDS: methylPREDNISolone SOD SUCC 125 MG/2ML VIAL IV SCH ×5 (00:04→23:33)
[2017-07-31] MEDS: PROPOFOL 10MG/ML 50ML 50 ML IV PRN ×6 (03:59→22:14)
--- NOTE | 2017-07-31 07:35 | NUR ---
RN NOTE RECEIVED PT IN BED, INTUBATED. ETT 7.5 23CM LIPLINE. PT ON SEDATION DIPRIVAN@10MCG/KH/MIN. ON [facility] VENT SETTINGS PRESCRIBED: AC 14 TV 400 FIO2 40% PEEP 0, SATING WELL, NO S/S OF RESP.DISTRESS OR SOB NOTED AT THIS TIME, RESPIRATIONS EVEN AND NON LABORED. PT SUCTIONED, ORAL CARE PROVIDED. PT IS ON BEDSIDE MONITOR SHOWING SR IN 80'S, NO S/S OF CHEST PAIN OR DISCOMFORT AT THIS TIME, PT HAS OGT, CLAMPED AT THIS TIME, INTACT/PATENT , FLUSHING WELL, PT HAS F/C DRAINING MINIMAL URINE TO GRAVITY, PT HAS NICOLETTE MIDLINE ONGOING IVF ORDERED, C/D/I/PATENT, FLUSHING WELL, PT HAS BILATERAL WRIST RESTRAINTS IN PLACE, RELEASED AND SKIN CHECK AND CIRCULATION DONE. ALL SAFETY MEASURES IN PLACE AT ALL TIMES, CALL LIGHT WITHIN EASY REACH, WILL MONITOR PT CLOSELY FOR CHANGES
--- NOTE | 2017-07-31 08:00 | NUR ---
Female pt intubated on AC mode. ETT secured at 23cm @ the lip. Vent is plugged into a red outlet, alarms are set and audible, and BVM is at bedside. Addendum: 07/31/17 at 0802 by CINDI WINSTON RT Amended: Links added.
[2017-07-31] MEDS: ASPIRIN EC 81 MG TABLET.DR PO SCH (08:31)
[2017-07-31] MEDS: FAMOTIDINE/PF INJ 20 MG/2 ML VIAL IV SCH (08:31)
--- NOTE | 2017-07-31 08:37 | NUR ---
RN NOTES PT ON SEDATION VACATION, TITRATED RATE PER PROTOCOL. BILATERAL SOFT WRIST RESTRAINTS SECURED. SKIN AND CIRCULATION CHECKED. WILL MONITOR CLOSELY
[2017-07-31 09:35] LABS: ABG BASE EXCESS 4.1 mmol/L; ABG OXYGEN SATURATION 97.6 % (92.0-98.5); ABG PCO2 57.1 mmHg (35.0-45.0); ABG PO2 132.9 mmHg (75.0-100.0); AaDO2 86.6 mmHg; COHb 0.3 % (0.5-1.5); MetHb 0.8 % (0.0-1.5); O2Hb 96.5 % (94.0-97.0); PEEP,BG 5 cm H2O; SITE, ABG Right Radial; VENT MODE, BG AC 14 400 40% +5; VT, ABG 400 mL
[2017-07-31] MEDS: AZITHROMYCIN 500 MG in IV D5W 250 ML IV SCH (10:26)
[2017-07-31] MEDS: Potassium Chloride 20 MEQ in IV NS 0.9% 1,000 ML IV PRN (10:26)
[2017-07-31 10:44] LABS: BASOPHILS # (AUTO) 0.2 /CMM (0.0-0.2); BASOPHILS % (AUTO) 1.4 % (0.0-2.0); HEMATOCRIT 31 % (33-45); HEMOGLOBIN 10.4 g/dL (11.5-14.8); LYMPHOCYTES # (AUTO) 0.2 /CMM (0.8-4.8); LYMPHOCYTES % (AUTO) 1.2 % (20.0-44.0); MEAN CORPUSCULAR HEMOGLOBIN 30 PG (26.0-33.0); MEAN CORPUSCULAR HGB CONC 34 g/dl (31.0-36.0); MEAN CORPUSCULAR VOLUME 89 fL (82-100); MONOCYTES # (AUTO) 0.4 /CMM (0.1-1.30); MONOCYTES % (AUTO) 3.1 % (2.0-12.0); NEUTROPHILS # (AUTO) 12.4 /CMM (1.8-8.9); NEUTROPHILS % (AUTO) 94.3 % (43.0-81.0); PLATELET COUNT (AUTO) 205 /CMM (150-450); RDW COEFFICIENT OF VARIATION 16.9 (11.5-15.0); RED BLOOD CELL COUNT(AUTO) 3.46 MIL/uL (4.0-5.2); WHITE BLOOD COUNT (AUTO) 13.2 K/uL (4.3-11.0)
--- NOTE | 2017-07-31 11:23 | NUR ---
RN NOTES DR GOLDSTEIN AT BEDSIDE, PT WAS SEEN AND EVALUATED. PT OFF SEDATION, VS STABLE AT THIS TIME, ST HR 110'S ON COMPRESSOR REPAIRER. PT RESPONDS WHEN NAME IS CALLED, ALTHOUGH STILL A BIT DROWSY. PER DR GOLDSTEIN IF PT MORE ALERT LATER, START WEANING TRIAL SIMV 4 R 15 PRESSURE SUPPORT 5. THEN CHECK ABG AFTER 1 HOUR. COMMUNICATED WITH RT.
--- NOTE | 2017-07-31 11:28 | NUR ---
RN NOTES SISTER AT BEDSIDE, DR GOLDSTEIN SPOKE AND DISCUSSED CURRENT PLAN OF CARE
[2017-07-31 12:07] LABS: CALCIUM, SERUM 7.8 mg/dL (8.5-10.1); CREATININE 0.6 mg/dL (0.6-1.3); POTASSIUM 5.7 mmol/L (3.5-5.1)
[2017-07-31 12:13] LABS: MAGNESIUM 1.9 mg/dL (1.8-2.4); PHOSPHORUS 1.9 mg/dL (2.5-4.9)
--- NOTE | 2017-07-31 13:45 | NUR ---
RN NOTES WEANING TRIAL STARTED, RT AT BEDSIDE, PLACED PT ON SIMV 4 PRESSURE SUPPORT 15 PEEP 5. PATIENT NOT TOLERATING, HR 130'S, AND PT VERY TACHYPNEIC RR 35. DR GOLDSTEIN NOTIFIED PER MD CARTER TO PUT PT BACK ON AC MODE TWITH PREVIOUS SETTINGS. DIPRIVAN SEDATION RESUMED@ PREVIOUS RATE.
--- NOTE | 2017-07-31 13:54 | NUR ---
Pt placed on SIMV mode per MD order, but placed back to AC mode (per MD) due to increased HR and RR. RN notified. Addendum: 07/31/17 at 1356 by CINDI WINSTON RT Amended: Links added.
[2017-07-31] MEDS ORDERED: FUROSEMIDE 20 MG/2 ML VIAL IV ONE (14:30)
[2017-07-31] MEDS: CEFTRIAXONE 1 G in IV D5W 50 ML IV SCH (16:51)
[2017-07-31] MEDS ORDERED: HEPARIN INFUSION/D5W 500 ML IV PRN (17:30)
[2017-07-31] MEDS: FIBERSOURCE HN 1,000 ML BOTTLE NG PRN (17:57)
[2017-07-31] MEDS ORDERED: HEPARIN SODIUM, PORCINE 5000 UNITS/1 ML VIAL IV ONE (18:00)
--- NOTE | 2017-07-31 19:30 | NUR ---
NEON INSTALLER INITIAL NOTE PT RECEIVED INTUBATED WITH [facility] VENT SETTINGS WELL TOLERATED. ETT 7.5 AND 23 AT THE LIP WITH 100% SATURATION. TELE- SINUS TACH 105. ORAL FEEDING TUBE IN PLACE, PATENT WITH FEEDING INFUSING AND NO RESIDUALS NOTED. HOB ELEVATED AND ON ASPIRATION PRECAUTIONS. IV L EJ CLEAN, DRY AND PATENT. IV NICOLETTE MIDLINE CLEAN, PATENT WITH HEPARIN AND DIPRIVAN INFUSING. DUARTE CATHETER IN PLACE AND DRAINING YELLOW URINE BY GRAVITY. WILL CONTINUE TO MONITOR.
--- NOTE | 2017-07-31 19:45 | NUR ---
PT RCVD INTUBATED WITH ETT 7.5 AT 23CM ON THE LIP. PT STABLE ON CURRENT [facility] VENT SETTINGS OF AC 14,400,40% AND PEEP OF 5. SUCTIONED MODERATE AMOUNT OF YELLOW THICK SECRETIONS. EQUAL BILATERAL BS NOTED. VENT ALARM WORKING AND AUDIBLE, VENT PLUGGED INTO RED OUTLET. AMBU BAG AT BEDSIDE. WILL CONTINUE TO MONITOR THE PATIENT.
[2017-07-31] MEDS: ATORVASTATIN 10 MG TABLET PO SCH (22:15)
[2017-08-01] VITALS (31 sets, daily range): BP systolic 112–160; BP diastolic 58–89
--- NOTE | 2017-08-01 | NUR ---
ORGANIZATIONAL EFFECTIVENESS DIRECTOR NOTE SPOKE WITH ELECTRIC TOOL REPAIRER DR. LAST REGARDING HEPARIN DRIP ORDER BEING USED IS NOT FOR ACS BUT INSTEAD IS NON ACS. DR SAID TO CONTINUE SAME ORDER AND HAVE IT CLARIFIED IN THE AM BY ORDERING DOCTOR.
[2017-08-01] MEDS: PROPOFOL 10MG/ML 50ML 50 ML IV PRN ×2 (02:16→06:15)
--- NOTE | 2017-08-01 02:20 | NUR ---
MUNITIONS FACTORY WORKER NOTE RECEIVED PTT CRITICAL HIGH 142. SPOKE WITH SOUNDSCRIBER MECHANIC DR. LAST WITH ORDERS TO CONTINUE SAME ORDER. HOLD HEPARIN FOR 60 MINS AND DECREASE RATE BY 100 UNITS/HR. ORDERS NOTED AND CARRIED OUT.
--- NOTE | 2017-08-01 03:00 | NUR ---
CIGAR HEAD PEGGER NOTE RESTARTED HEPARIN DRIP AT 0300 AND DECREASED THE RATE BY 200 UNITS/HR FROM 840 UNITS/HR TO 640 UNIT/HR. WILL ORDER PTT FOR 0900.
[2017-08-01] MEDS: IPRATROPIUM NEB FS 0.5 MG/2.5 ML AMPUL.NEB NEB SCH ×5 (03:24→20:06)
[2017-08-01] MEDS: ALBUTEROL FS 2.5 MG/0.5 ML VIAL.NEB NEB SCH ×5 (03:24→20:06)
[2017-08-01 05:10] LABS: HEMATOCRIT 28 % (33-45); HEMOGLOBIN 9.6 g/dL (11.5-14.8); LYMPHOCYTES # (AUTO) 0.2 /CMM (0.8-4.8); LYMPHOCYTES % (AUTO) 1.4 % (20.0-44.0); MEAN CORPUSCULAR HEMOGLOBIN 31 PG (26.0-33.0); MEAN CORPUSCULAR HGB CONC 35 g/dl (31.0-36.0); MEAN CORPUSCULAR VOLUME 89 fL (82-100); MONOCYTES # (AUTO) 0.5 /CMM (0.1-1.30); MONOCYTES % (AUTO) 4.3 % (2.0-12.0); NEUTROPHILS # (AUTO) 10.6 /CMM (1.8-8.9); NEUTROPHILS % (AUTO) 94.3 % (43.0-81.0); PLATELET COUNT (AUTO) 233 /CMM (150-450); RDW COEFFICIENT OF VARIATION 16.4 (11.5-15.0); RED BLOOD CELL COUNT(AUTO) 3.11 MIL/uL (4.0-5.2); WHITE BLOOD COUNT (AUTO) 11.2 K/uL (4.3-11.0)
[2017-08-01] MEDS: methylPREDNISolone SOD SUCC 125 MG/2ML VIAL IV SCH ×4 (05:11→23:29)
[2017-08-01 05:35] LABS: CALCIUM, SERUM 8.4 mg/dL (8.5-10.1); CREATININE 0.7 mg/dL (0.6-1.3); PHOSPHORUS 1.9 mg/dL (2.5-4.9); POTASSIUM 5.7 mmol/L (3.5-5.1)
[2017-08-01 05:49] LABS: CHOLESTEROL 123 mg/dL (<200); HDL CHOLESTEROL 58 mg/dL (40-60); LDL 54 mg/dL (0-99); TRIGLYCERIDES 103 mg/dL (30-150)
--- NOTE | 2017-08-01 07:29 | NUR ---
CONDITIONING YARD SUPERVISOR CLOSING NOTE PT REMAINED STABLE DURING SHIFT. NO ACUTE DISTRESS NOTED. ETT 7.5 AND 23 AT THE LIP. HOB ELEVATED. TUBE FEEDING WELL TOLERATED AND NO RESIDUALS NOTED. KEPT CLEAN AND DRY. ALL NEEDS ATTENDED TO PROMPTLY. WILL ENDORSE TO NEXT SHIFT FOR CONTINUITY OF CARE.
--- NOTE | 2017-08-01 07:57 | NUR ---
RN NOTE RECEIVED PT INTUBATED WITH [facility] VENT SETTINGS WELL TOLERATED. ETT 7.5 23CM AT THE LIP. AC 14 TV 400 FIO2 40% PEEP 5. ST ON FRONT OFFICE ASSISTANT HR 103BPM. OGT IN PLACE RUNNING FIBERSOOURCE@20ML/HR, CARLA WELL NO RESIDUAL. HOB ELEVATED AND ON ASPIRATION PRECAUTIONS. IV L EJ, SL. CDI. IV NICOLETTE MIDLINE CLEAN, PATENT WITH HEPARIN ONGOING@[id number]/HR, NEXT SCHEDULED PTT CHECK AT 0900. DIPRIVAN INFUSING @40MCG/KG/MIN, PT APPEARS COMFORTABLE AT THIS TIME. DUARTE CATHETER IN PLACE DRAINING YELLOW URINE WITH SOME SEDIMENTS NOTED. REPOSITIONED FOR COMFORT. WILL MONITOR CLOSELY
[2017-08-01] MEDS: ASPIRIN EC 81 MG TABLET.DR PO SCH (08:58)
[2017-08-01] MEDS: FAMOTIDINE/PF INJ 20 MG/2 ML VIAL IV SCH (08:58)
--- NOTE | 2017-08-01 09:33 | NUR ---
RN NOTES PTT=66, NO CHANGE. MD KEYES
--- NOTE | 2017-08-01 09:51 | NUR ---
RN NOTES DR THOMPSON AT BEDSIDE, PT WAS SEN AND EVALUATED. VS AND CURRENT LABS REPORTED. K+ 5.7 PER MD GIVE KAYEXALATE 30G, PHOS 1.9, PHARMACY TO REPLACE. H/H 9.01/13, TRENDING DOWN, WILL MONITOR FOR ANY BLEEDING. LATEST PTT: 66, PER MD OKAY TO STOP HEPARIN DRIP. ALL ORDERS NOTED AND CARRIED OUT
[2017-08-01] MEDS ORDERED: SODIUM POLYSTYRENE SULFONATE 15 G/60 ML BOTTLE PO ONE (10:00)
[2017-08-01] MEDS ORDERED: IV NS 0.9% 1,000 ML IV ONE (10:00)
--- NOTE | 2017-08-01 10:05 | NUR ---
RN NOTES DIPRIVAN OFF FOR SEDATION VACATION, TITRATED RATE PER PROTOCOL. BILATERAL SOFT WRIST RESTRAINTS SECURED. SKIN AND CIRCULATION CHECKED. WILL MONITOR CLOSELY
[2017-08-01] MEDS: AZITHROMYCIN 500 MG in IV D5W 250 ML IV SCH (10:33)
--- NOTE | 2017-08-01 10:48 | NUR ---
RN NOTES DR GOLDSTEIN AT BEDSIDE, PT WAS SEEN AND EVALUATED. CURRENT EVENTS, VS AND LAB DISCUSSED WITH MD. HEPARIN DC'D LATEST PTT:66. PT ON SEDATION VACATION, APPEARS CALM AT THIS TIME. VS STABLE BP: 140/87 HR 104 RR:17. PER DR GOLDSTEIN, MAY KEEP OFF SEDATION I PT TOLERATES. WILL MONITOR CLOSELY
[2017-08-01] MEDS: ENOXAPARIN SODIUM 40 MG/0.4 ML DISP.SYRIN SQ SCH (12:17)
[2017-08-01] MEDS ORDERED: NEUTRA PHOS 1 POWD.PACKET NG ONE (14:30)
[2017-08-01] MEDS ORDERED: CT SWABBABLE VALVE TRANS SET 1 EA INFUS.SET MC ONE (15:39)
[2017-08-01] MEDS ORDERED: IOHEXOL-350 100 ML VIAL IV ONE (15:39)
[2017-08-01] MEDS ORDERED: IV NS 0.9% 250 ML IV ONE (15:39)
[2017-08-01] MEDS: CEFTRIAXONE 1 G in IV D5W 50 ML IV SCH (16:35)
[2017-08-01] MEDS: FIBERSOURCE HN 1,000 ML BOTTLE NG PRN (18:26)
--- NOTE | 2017-08-01 18:48 | NUR ---
RT END OF THE SHIFT REPORT PT. 67 Y OLD FEMALE REMAIN ORALLY INTUBATED ETT# 7.5 @22 VENT WITH NOTED SETTINGS, ALARMS ARE SET AND FUNCTIONAL. B/S RALES/ RHONCHI. BILATERALLY AND EQUAL CHEST RISE NOTED SUX'D FOR MODERATE AMT OF YELLOWISH SECRETIONS. VENT PLUGGED INTO RED OUTLET AND NO DISTRESS NOTED T/O SHIFT HME CHANGED AND AMBU BAG REMAIN AT THE BEDSIDE. [address] TRANSPORT REPORT WILL BE PASS TO PM SHIFT. Addendum: 08/01/17 at 1849 by RICK PORTILLO RT Amended: Links added.
--- NOTE | 2017-08-01 18:58 | NUR ---
ADJUSTER PIANO ACTION CLOSING NOTE PT RESTING IN BED COMFORTABLY, OFF SEDATION. VS STABLE. NO ACUTE DISTRESS NOTED. ETT 7.5 AND 23 AT THE LIP. HOB ELEVATED. TUBE FEEDING WELL TOLERATED FIBERSOURCE@20ML/HR, NO RESIDUALS NOTED. PENDING CTA RESULTS. KEPT PT CLEAN AND DRY. TUNRED AND REPOSITIONED TOLERATED. GOOD SKIN CARE PROVIDED. Z GUARD APPLIED, ALL NEEDS ATTENDED. WILL ENDORSE TO NEXT SHIFT FOR CONTINUITY OF CARE.
--- NOTE | 2017-08-01 19:30 | NUR ---
ATTENDANT COIN OPERATED LAUNDRY INITIAL NOTE PT RECEIVED AWAKE AND ALERT. ABLE TO NOD FOR YES OR NO. NO C/O PAIN OR DISCOMFORT NOTED.ETT 7.5 AND 23CM AT THE LIP. HOB ELEVATED AND ON ASPIRATION PRECAUTIONS. O2 SATURATION 99% AND VENT SETTINGS WELL TOLERATED. AFEBRILE. BILATERAL SOFT WRIST RESTRAINTS ON AND SECURED IN PLACE WITH PALPABLE PULSES AND NO DISCOLORATION NOTED. FEEDING TUBE IN PLACE AND NO NOTED RESIDUALS. IV SITE CLEAN, INTACT AND FLUSHING WELL. DUARTE CATHETER IN PLACE AND DRAINING BY GRAVITY. CALL LIGHT WITHIN REACH. WILL CONTINUE TO MONITOR.
[2017-08-01] MEDS: ATORVASTATIN 10 MG TABLET PO SCH (21:13)
[2017-08-02] VITALS (38 sets, daily range): BP systolic 138–165; BP diastolic 11–96
[2017-08-02] MEDS: IPRATROPIUM NEB FS 0.5 MG/2.5 ML AMPUL.NEB NEB SCH ×7 (00:18→23:43)
[2017-08-02] MEDS: ALBUTEROL FS 2.5 MG/0.5 ML VIAL.NEB NEB SCH ×8 (00:18→23:43)
--- NOTE | 2017-08-02 05:04 | NUR ---
RT PT RECEIVED INTUBATED WITH NOTED SETTING PER MD ORDERS. ETT PATENT AND SECURE VIA ANCHOR FAST. AMBU BAG AT HOB . SX MOD AMOUNT OF THICK BROWN/YELLOW SECRETIONS. NO SOB OR RESP DISTRESS NOTED ON SHIFT. Addendum: 08/02/17 at 0506 by CANDIE KURTZ RT Amended: Links added.
[2017-08-02] MEDS: methylPREDNISolone SOD SUCC 125 MG/2ML VIAL IV SCH ×3 (06:07→17:10)
--- NOTE | 2017-08-02 06:51 | NUR ---
PLASTIC AND RECONSTRUCTIVE SURGEON CLOSING NOTE NO ACUTE DISTRESS NOTED. VENT SETTINGS WELL TOLERATED. HOB ELEVATED. ALL NEEDS ATTENDED TO PROMPTLY. SUCTIONED NEEDED. KEPT CLEAN AND DRY. REPOSITIONED Q2H TOLERATED. NO FACIAL GRIMACE. NO C/O PAIN AT THIS TIME. WILL ENDORSE TO NEXT SHIFT FOR CONTINUITY OF CARE.
--- NOTE | 2017-08-02 08:00 | NUR ---
ICU/RN AM SHIFT INITIAL NOTES RECEIVED PT AWAKE IN BED, PT ALERT, DENIES ANY SYMPTOMS. NO ACUTE CHANGE OF CONDITION NOTED. ON VENTILATOR SUPPORT ETT, 23CM ON LIP, RATES SET PRESCRIBED, SATURATING @ 97%, LUNG SOUNDS CLEAR. PT REFUSED TO BE SUCTIONED. ON TELE WITH SINUS TACHY, HR 109. OT FEEDING ON GOING @ 20CC/HR, NO GASTRIC RESIDUAL NOTED, FLUSHED, PATENT. DUARTE CATHETER INTACT WITH YELLOW URINE OUTPUT. MIDLINE FLUSHED, PATENT WITH NO S/S OF INFECTION. BILATERAL CHECKED FOR CIRCULATION AND COMFORT. PT IS COMFORTABLE. SCHEDULED AM MEDS TO BE GIVEN. CL WITHIN REACHED AND SAFETY MAINTAINED. ON GOING MONITORING.
[2017-08-02 08:02] LABS: HEMATOCRIT 27 % (33-45); HEMOGLOBIN 9.1 g/dL (11.5-14.8); LYMPHOCYTES # (AUTO) 0.1 /CMM (0.8-4.8); MEAN CORPUSCULAR HEMOGLOBIN 30 PG (26.0-33.0); MEAN CORPUSCULAR HGB CONC 33 g/dl (31.0-36.0); MEAN CORPUSCULAR VOLUME 90 fL (82-100); MONOCYTES # (AUTO) 0.4 /CMM (0.1-1.30); MONOCYTES % (AUTO) 3.1 % (2.0-12.0); NEUTROPHILS % (AUTO) 95.9 % (43.0-81.0); PLATELET COUNT (AUTO) 190 /CMM (150-450); RED BLOOD CELL COUNT(AUTO) 3.06 MIL/uL (4.0-5.2); WHITE BLOOD COUNT (AUTO) 11.5 K/uL (4.3-11.0)
[2017-08-02 08:19] LABS: CALCIUM, SERUM 7.9 mg/dL (8.5-10.1); CREATININE 0.6 mg/dL (0.6-1.3); MAGNESIUM 1.7 mg/dL (1.8-2.4); PHOSPHORUS 2.5 mg/dL (2.5-4.9); POTASSIUM 3.3 mmol/L (3.5-5.1)
[2017-08-02 08:38] LABS: INR 0.9 (0.87-1.13)
[2017-08-02] MEDS: FAMOTIDINE/PF INJ 20 MG/2 ML VIAL IV SCH (09:07)
[2017-08-02] MEDS: ASPIRIN EC 81 MG TABLET.DR PO SCH (09:07)
--- NOTE | 2017-08-02 09:19 | NUR ---
ICU/RN ROUNDS - DR. GOLDSTEIN UPDATED PT'S CONDITION. PT SEEN & EXAMINED BY DR. GOLDSTEIN. WITH VERBAL ORDER RECEIVED TO PLACED PT ON SIMV MODE, RATE 4, PRESSURE SUPPORT 15, PEEP 5, FIO2 40% AND ABG AFTER 1 HOUR. RT NOTIFIED. NOTED AND CARRIED.
--- NOTE | 2017-08-02 09:20 | NUR ---
ICU/RN SIMV MODE PT PLACED ON SIMV MODE. RATE 4, PS 15, PEEP 5. ABD WILL BE DRAWN IN ONE HOUR. MONITORING.
--- NOTE | 2017-08-02 10:47 | NUR ---
ICU/RN CPAP PT PLACED ON CPAP. ABG WILL BE DRAWN IN ONE HOUR. MONITORING.
[2017-08-02] MEDS: AZITHROMYCIN 250 MG TABLET PO SCH (11:49)
[2017-08-02] MEDS: Magnesium 1GM/D5W 100ML PREMIX 100 ML IV SCH ×2 (11:59→13:27)
[2017-08-02] MEDS: ENOXAPARIN SODIUM 40 MG/0.4 ML DISP.SYRIN SQ SCH (12:03)
[2017-08-02 12:12] LABS: ABG BASE EXCESS 6.5 mmol/L; ABG OXYGEN SATURATION 96.4 % (92.0-98.5); ABG PCO2 60.8 mmHg (35.0-45.0); ABG PH 7.358 (7.350-7.450); ABG PO2 107.7 mmHg (75.0-100.0); AaDO2 107.6 mmHg; COHb 0.3 % (0.5-1.5); MetHb 1.9 % (0.0-1.5); O2Hb 94.3 % (94.0-97.0); PEEP,BG 5 cm H2O; SITE, ABG Left Radial
--- NOTE | 2017-08-02 12:24 | NUR ---
ICU/RN EXTUBATED PT EXTUBATED, PLACED ON 4L HUMIDIFIED 02, VIA N/C. ABG WILL BE DRAWN IN ONE HOUR. ON GOING MONITORING.
[2017-08-02] MEDS ORDERED: POTASSIUM CL. PREMIX PERIPHER. 50 ML IV SCH (12:30)
--- NOTE | 2017-08-02 13:04 | NUR ---
ICU/RN SWALLOW EVALUATION UPDATED SPEECH THERAPIST REGARDING PT'S CONDITION. PER THERAPIST MAY WANT TO WAIT A DAY BEFORE REMOVING ORAL TUBE, THERAPIST WILL COME BY TO EVALUATE PT. MONITORING. Addendum: 08/02/17 at 1324 by LOPEZ MAHER RN ADDENDUM: SPEECH THERAPIST EVALUATED PT WITH (2) FAMILY MEMBERS AT BEDSIDE, PER THERAPIST PER PROTOCOL TO WAIT A DAY (TOMORROW) TO REMOVE ORAL TUBE, FAMILY MEMBERS IN AGREEMENT. ON GOING MONITORING. PT ON 4L HUMIDIFIED O2 VIA N/C.
[2017-08-02] MEDS ORDERED: DC PROPOFOL WHEN EXTUBATED XX PRN (13:30)
[2017-08-02 13:52] LABS: ABG BASE EXCESS 8.4 mmol/L; ABG OXYGEN SATURATION 96.8 % (92.0-98.5); ABG PCO2 78.9 mmHg (35.0-45.0); ABG PH 7.292 (7.350-7.450); ABG PO2 113.8 mmHg (75.0-100.0); AaDO2 51.4 mmHg; COHb 0.3 % (0.5-1.5); MetHb 1.3 % (0.0-1.5); O2Hb 95.3 % (94.0-97.0); SITE, ABG Left Radial; VENT MODE, BG N/C
--- NOTE | 2017-08-02 14:00 | NUR ---
ICU/RN 02 - 2L VIA N/C PT PLACED ON 2L O2 VIA N/C, ABG WILL BE DRAWN IN 2 HOURS. MONITORING.
--- NOTE | 2017-08-02 14:28 | NUR ---
ICU/RN BACK ON BI-PAP PT DESATURATED ON 2L O2, ABOUT 85%, PT PLACED BACK ON BI-PAP. RATE 12, IPAP 20, EPAP 5, FIO2 40% & PRESSURE SUPPORT 15. ABG WILL BE DRAWN AGAIN IN ONE HOUR. ON GOING MONITORING.
[2017-08-02] MEDS: POTASSIUM CL. PREMIX PERIPHER. 50 ML IV SCH ×2 (15:25→17:07)
[2017-08-02 16:23] LABS: SITE, ABG Left Radial
[2017-08-02 16:24] LABS: ABG BASE EXCESS 10.5 mmol/L; ABG PCO2 61.1 mmHg (35.0-45.0); ABG PO2 102.1 mmHg (75.0-100.0); AaDO2 112.8 mmHg; COHb 0.6 % (0.5-1.5); MetHb 1.5 % (0.0-1.5); O2Hb 94.6 % (94.0-97.0); VENT MODE, BG bipap 20/5 ps15 rr12
[2017-08-02] MEDS: CEFTRIAXONE 1 G in IV D5W 50 ML IV SCH (17:10)
--- NOTE | 2017-08-02 17:30 | NUR ---
ICU/RN ROUNDS PM CARE PROVIDED. PT IS SATURATING WELL ON BI-PAP, NO ACUTE CHANGE OF CONDITION OR RESPIRATORY DISTRESS. MONITORING.
--- NOTE | 2017-08-02 17:45 | NUR ---
ICU/RN DIETARY RECOMMENDATION SPOKE TO MANAGER CARDIAC WITH RECOMMENDATIONS GIVEN: IF PT TO CONTINUE ON TUBE FEEDING TO CHANGE FORMULA TO GLYTROL WITH GOAL OF 50CC/HR. IF PT PASS SWALLOW EVALUATION, TO PLACE ON DIABETIC 60 GRAMS. NOTED, WILL ENDORSED RECOMMENDATIONS TO PM NURSE.
--- NOTE | 2017-08-02 18:42 | NUR ---
PT. 67 Y OLD FEMALE REMAIN ON BIPAP WITH NOTED SETTINGS, ALARMS ARE SET AND FUNCTIONAL. @0820 SIMV MODE @ 1047 CPAP MODE, @[address] GOLDSTEIN ORDER. @1420 PLACED ON BIPAP POST ABG CARLA. WELL AND CONTINUE FOR MONITOR AND CARE AMBU BAG REMAIN AT THE BEDSIDE. Addendum: 08/02/17 at 1844 by RICK PORTILLO RT Amended: Links added.
--- NOTE | 2017-08-02 19:25 | NUR ---
PT RCVD ON BIPAP 20/5,R12,40%, PS 15. PT IS ALERT AND AWAKE. NO RESPIRATORY DISTRESS AT THIS TIME. VENT PLUGGED INTO RED OUTLET, VENT ALARM WORKING AND AUDIBLE. AMBU BAG AT BED SIDE. WILL CONTINUE TO MONITOR THE PT.
--- NOTE | 2017-08-02 19:37 | NUR ---
ICU/RN AM SHIFT END NOTES ALL NEEDS MET. PT ON BI-PAP. ENDORSED TO PM NURSE TO CONTINUE CARE. O-TUBE AND DUARTE CATHETER INTACT. CL WITHIN REACHED AND SAFETY MAINTAINED.
[2017-08-02] MEDS: ATORVASTATIN 10 MG TABLET PO SCH (21:41)
--- NOTE | 2017-08-02 22:00 | NUR ---
POCKET SECRETARY ASSEMBLER - REC'D PT. ON BIPAP (I:E=20/5,RATE=12, 40%). A&O X 2-3, PT. WAS PLACED ON A SMALLER MASK FOR BIPAP TO FIT HER FACE. TOO MUCH AIR LEAKAGE. PT'S O2 SATS REMAIN >95%. VSS. AFEBRILE. RT. HAND IS 3+/PITTING, COMPARED TO LEFT HAND AT 2+. SCATTERED ECCHYMOSES TO BODY.ALL PULSES PALPABLE X 4 EXT. LUE MIDLINE HAS 0.9%NS AT TKO. OGT HAS FIBERSOURCE INFUSING AT 20CC/HR. NO RESIDUALS NOTED. DUARTE CATH TO GRAVITY. PT'S FAMILY AT . ALL QUESTIONS ANSWERED. CONT. POC.
[2017-08-03] VITALS (112 sets, daily range): BP systolic 64–179; BP diastolic 40–100
[2017-08-03] MEDS: methylPREDNISolone SOD SUCC 125 MG/2ML VIAL IV SCH ×3 (00:03→12:19)
[2017-08-03] MEDS: IPRATROPIUM NEB FS 0.5 MG/2.5 ML AMPUL.NEB NEB SCH ×6 (03:09→23:49)
[2017-08-03] MEDS: ALBUTEROL FS 2.5 MG/0.5 ML VIAL.NEB NEB SCH ×7 (03:09→23:49)
[2017-08-03 04:42] LABS: BASOPHILS % (AUTO) 0.3 % (0.0-2.0); HEMATOCRIT 29 % (33-45); HEMOGLOBIN 9.6 g/dL (11.5-14.8); LYMPHOCYTES # (AUTO) 0.2 /CMM (0.8-4.8); LYMPHOCYTES % (AUTO) 1.1 % (20.0-44.0); MEAN CORPUSCULAR HEMOGLOBIN 30 PG (26.0-33.0); MEAN CORPUSCULAR HGB CONC 33 g/dl (31.0-36.0); MEAN CORPUSCULAR VOLUME 90 fL (82-100); MONOCYTES # (AUTO) 0.4 /CMM (0.1-1.30); MONOCYTES % (AUTO) 2.9 % (2.0-12.0); NEUTROPHILS # (AUTO) 13.5 /CMM (1.8-8.9); NEUTROPHILS % (AUTO) 95.7 % (43.0-81.0); PLATELET COUNT (AUTO) 179 /CMM (150-450); RED BLOOD CELL COUNT(AUTO) 3.23 MIL/uL (4.0-5.2); WHITE BLOOD COUNT (AUTO) 14.1 K/uL (4.3-11.0)
[2017-08-03 04:59] LABS: CALCIUM, SERUM 8.9 mg/dL (8.5-10.1); CREATININE 0.6 mg/dL (0.6-1.3); MAGNESIUM 2.5 mg/dL (1.8-2.4); PHOSPHORUS 2.1 mg/dL (2.5-4.9); POTASSIUM 3.7 mmol/L (3.5-5.1)
--- NOTE | 2017-08-03 06:40 | NUR ---
GRAIN OILSEED OR PASTURE GROWER - ESHA CHURCH CALLED AT 06:25, PT. CHETNA'D DOWN & WENT INTO [facility]. AT TIME OF CODE, MT STATED PT. WAS 100% O2 SATS. PT. WAS A&O AT 06:15 DURING DIAPER CHANGE. PT.STATED "NO" TO PAIN AT 6AM. PT. RE-INTUBATED. VENT SETTINGS AT AC-16,TV-500,100% & PEEP OF 5. CONT.POC. Addendum: 08/03/17 at 0833 by KATRINA VAZQUEZ RN BOTH SONS WERE PHONED OF INTUBATION PROCEDURE. A PHONE MESSAGE WAS LEFT W/SON FERNANDO & LUIS EDUARDO ANSWERED HIS PHONE & WAS GIVEN STATUS UPDATE. LUIS EDUARDO VERBALIZED UNDERSTANDING OF MOTHERS REINTUBATION. CONT.POC.
--- NOTE | 2017-08-03 07:30 | NUR ---
RN INITIAL NOTES 704 RECEIVED PT RE-INTUBATED, ON VENT. NO RESPIRATORY DISTRESS NOTED. NO SOB NOTED. HOB ELEVATED. NO SIGNS OF PAIN NOTED. OG IN PLACE. IV LINES IN PLACE. FC IN PLACE. PT'S SBP ON LOW 70S. DR. THOMPSON PAGED. CALLED LUIS EDUARDO (SON) AND GIVEN UPDATE REGARDING PT'S CONDITION. TELEPHONE CONSENT FOR PICC INSERTION OBTAIN. BLE ELEVATED. WILL CLOSELY MONITOR.
[2017-08-03 07:38] LABS: ABG BASE EXCESS -2.9 mmol/L; ABG PCO2 51.3 mmHg (35.0-45.0); ABG PH 7.293 (7.350-7.450); AaDO2 597.7 mmHg; COHb 1.3 % (0.5-1.5); MetHb 1.1 % (0.0-1.5); PEEP,BG 5 cm H2O; SITE, ABG Right Radial; VENT MODE, BG AC 16 500; VT, ABG 500 mL
[2017-08-03] MEDS: NOREPINEPHRINE 16 MG in IV D5W 500 ML IV PRN ×2 (08:24→17:23)
[2017-08-03] MEDS: ASPIRIN EC 81 MG TABLET.DR PO SCH (09:00)
[2017-08-03] MEDS: FAMOTIDINE/PF INJ 20 MG/2 ML VIAL IV SCH (09:01)
[2017-08-03] MEDS ORDERED: EPINEPHRINE (1:10,000) SYRINGE 1 MG/10 ML DISP.SYRIN IVP ONE (09:36)
[2017-08-03] MEDS ORDERED: FEE EMEERGENCY 1 MIN EA MC ONE (09:36)
--- NOTE | 2017-08-03 10:04 | NUR ---
ETT ADVANCED BY 2CM AND RESECURED @ 24CM LIPLINE POST INTUBATION XRAY AND RECOMMENDATION BY RADIOLOGIST. EQUAL DIMINISHED BREATH SOUNDS, ADEQUATE RETURN VOLUMES, PRESSURES AND SATURATION NOTED. RN AWARE
--- NOTE | 2017-08-03 10:30 | NUR ---
RN NOTES SEEN AND EXAMINED BY DR. GOLDSTEIN. PT REINTUBATED, ON VENT. AWARE OF CURRENT LAV VALUES, ABG AND CXR RESULT. ET 7.4 ABOVE JUAN. ORDERED ADVANCE ET BY 3CM AND CHANGE AC TO 20. MURAD RT AWARE. WILL MONITOR
[2017-08-03] MEDS: AZITHROMYCIN 250 MG TABLET PO SCH (10:46)
--- NOTE | 2017-08-03 10:58 | NUR ---
ETT ADVANCED BY 1 MORE CM AND SECURED @ 23CM LIPLINE PER DR. GOLDSTEIN ORDER. MECHANICAL VENT RATE CHANGED TO 20 PER ORDER. Addendum: 08/03/17 at 1208 by HERMINIO WHITE RT CORRECTION: ETT RE-SECURED AT 25CM (NOT 23CM) LIPLINE AFTER ADVANCEMENT BY 1 MORE CM.
--- NOTE | 2017-08-03 11:00 | NUR ---
RN NOTES SEEN AND EXAMINED BY DR. THOMPSON. AWARE OF CURRENT LAB VALUES: WBC 14.1, HGB 9.6, HCT 29, BUN 20, CREA 0.6, PHOS 2.1. AWARE OF ABG AND CXR RESULT. PT REINTUBATED, ON VENT. NO RESPIRATORY DISTRESS NOTED. NO SOB NOTED. NO SIGNS OF PAIN NOTED. PT STARTED ON LEVO. MD DISCUSSED PLAN OF CARE WITH SONS AT BEDSIDE. WILL CLOSELY MONITOR.
[2017-08-03] MEDS ORDERED: NEUTRA PHOS 1 POWD.PACKET NG ONE (12:00)
[2017-08-03] MEDS: ENOXAPARIN SODIUM 40 MG/0.4 ML DISP.SYRIN SQ SCH (12:20)
[2017-08-03] MEDS: IV D5/0.45 NACL 1,000 ML IV PRN (13:33)
--- NOTE | 2017-08-03 15:36 | NUR ---
EEG in process and tx's skip pt. family members at the bedside. will take with the next one
[2017-08-03] MEDS: CEFTRIAXONE 1 G in IV D5W 50 ML IV SCH (16:39)
[2017-08-03] MEDS: MORPHINE SULFATE INJ 4 MG/ML DISP.SYRIN IM PRN (16:39)
[2017-08-03] MEDS: FIBERSOURCE HN 1,000 ML BOTTLE NG PRN (17:23)
--- NOTE | 2017-08-03 17:56 | NUR ---
RT END OF THE SHIFT REPORT PT. 67 Y OLD FEMALE REMAIN ORALLY INTUBATED ON VENT WITH NOTED AC SETTINGS, ALARMS ARE SET AND FUNCTIONAL. B/S RALES/ RHONCHI. BILATERALLY AND EQUAL CHEST RISE NOTED SUX'D FOR MODERATE AMT OF YELLOWISH SECRETIONS. 1530 TX'S SKIP DUE TO EEG IN PROCESS VENT PLUGGED INTO RED OUTLET AND NO DISTRESS NOTED T/O SHIFT HME CHANGED AND AMBU BAG REMAIN AT THE BEDSIDE. REPORT WILL PASS TO PM SHIFT. Addendum: 08/03/17 at 1757 by RICK PORTILLO RT Amended: Links added.
--- NOTE | 2017-08-03 18:45 | NUR ---
RN CLOSING NOTES PT REMAINS INTUBATED. ON VENT. NO RESPIRATORY DISTRESS NOTED. NO SIGNS OF PAIN NOTED. OG IN PLACE. TOLERATING GTF WELL. NO RESIDUAL NOTED. PICC LINE IN PLACE. ON LEVO, TITRATED ACCORDINGLY. FC IN PLACE. KEPT CLEAN AND DRY. REPOSITIONED Q2. KEPT COMFORTABLE. ALL NEEDS ANTICIPATED AND MET. BLE ELEVATED. WILL ENDORSE FOR CONTINUITY OF CARE.
[2017-08-03] MEDS: ATORVASTATIN 10 MG TABLET PO SCH (21:34)
[2017-08-04] VITALS (99 sets, daily range): BP systolic 72–165; BP diastolic 46–99
[2017-08-04] MEDS: IV D5/0.45 NACL 1,000 ML IV PRN ×2 (00:43→09:49)
[2017-08-04] MEDS: IPRATROPIUM NEB FS 0.5 MG/2.5 ML AMPUL.NEB NEB SCH ×6 (02:50→23:21)
[2017-08-04] MEDS: ALBUTEROL FS 2.5 MG/0.5 ML VIAL.NEB NEB SCH ×6 (02:50→23:21)
[2017-08-04 04:52] LABS: EOSINOPHILS % (AUTO) 0.1 % (0.0-6.0); HEMATOCRIT 26 % (33-45); HEMOGLOBIN 8.9 g/dL (11.5-14.8); LYMPHOCYTES # (AUTO) 0.6 /CMM (0.8-4.8); LYMPHOCYTES % (AUTO) 1.6 % (20.0-44.0); MEAN CORPUSCULAR HEMOGLOBIN 30 PG (26.0-33.0); MEAN CORPUSCULAR HGB CONC 34 g/dl (31.0-36.0); MEAN CORPUSCULAR VOLUME 89 fL (82-100); MONOCYTES # (AUTO) 0.1 /CMM (0.1-1.30); MONOCYTES % (AUTO) 0.2 % (2.0-12.0); NEUTROPHILS # (AUTO) 33.7 /CMM (1.8-8.9); NEUTROPHILS % (AUTO) 98.1 % (43.0-81.0); PLATELET COUNT (AUTO) 111 /CMM (150-450); RDW COEFFICIENT OF VARIATION 16.3 (11.5-15.0); RED BLOOD CELL COUNT(AUTO) 2.95 MIL/uL (4.0-5.2)
[2017-08-04 05:31] LABS: WHITE BLOOD COUNT (AUTO) 34.3 K/uL (4.3-11.0)
[2017-08-04 05:41] LABS: NEUTROPHILS % (MANUAL) 81 (42-76)
[2017-08-04 05:42] LABS: BAND % (MANUAL) 11 % (0.0-5.0); LYMPHOCYTES % (MANUAL) 4 % (16-48); METAMYELOCYTES % 1 % (0-0); MONOCYTES % (MANUAL) 1 % (0-11.0); MYELOCYTES % 2 % (0-0)
--- NOTE | 2017-08-04 07:05 | NUR ---
RN INITIAL NOTES RECEIVED PT INTUBATED, ON VENT. NO RESPIRATORY DISTRESS NOTED. NO SOB NOTED. NO SIGNS OF PAIN NOTED. HOB ELEVATED. OG IN PLACE. ON GTF. WILL MONITOR FOR RESIDUALS. NICOLETTE MIDLINE AND TOÑO PICC IN PLACE. IVF INFUSING. FC IN PLACE. BLE ELEVATED. PT COMFORTABLE. WILL MONITOR.
[2017-08-04 07:08] LABS: CALCIUM, SERUM 7.4 mg/dL (8.5-10.1); CREATININE 1.9 mg/dL (0.6-1.3); POTASSIUM 4.5 mmol/L (3.5-5.1)
[2017-08-04 07:18] LABS: PHOSPHORUS 3.5 mg/dL (2.5-4.9)
[2017-08-04 07:19] LABS: MAGNESIUM 2.2 mg/dL (1.8-2.4)
--- NOTE | 2017-08-04 07:20 | NUR ---
TECHNICAL COORDINATOR - LEVOPHED GTT. WAS WEANED OFF AT 05:00 AM. SBP'S ARE WNL. PT.REMAINS OBTUNDED.VENTED W/FIO2 DOWN TO 60%. CRITICAL LAB VALUE CALLED RE: WBC-34.3. DOCUMENTED. REPORT ENDORSED TO BROOKE DONG. CONT.POC.
[2017-08-04] MEDS: ASPIRIN EC 81 MG TABLET.DR PO SCH (08:56)
[2017-08-04 09:45] LABS: ABG BASE EXCESS 4.4 mmol/L; ABG OXYGEN SATURATION 97.8 % (92.0-98.5); ABG PCO2 40.1 mmHg (35.0-45.0); ABG PH 7.469 (7.350-7.450); ABG PO2 140.7 mmHg (75.0-100.0); COHb 0.3 % (0.5-1.5); MetHb 1.4 % (0.0-1.5); O2Hb 96.1 % (94.0-97.0); SITE, ABG Right Radial; VT, ABG 500 mL
--- NOTE | 2017-08-04 09:52 | NUR ---
Placed patient on Fi02 of 45% per Dr. Young. No SOB noted at this time. Patient stable.
[2017-08-04] MEDS: AZITHROMYCIN 250 MG TABLET PO SCH (10:01)
--- NOTE | 2017-08-04 10:30 | NUR ---
RN NOTES SEEN AND EXAMINED BY. DR. GOLDSTEIN. AWARE OF LAB VALUES, ABG AND CXR RESULT. WILL TITRATE FI02 AT 45%. WILL MONITOR.
--- NOTE | 2017-08-04 11:28 | NUR ---
RN NOTES SEEN AND EXAMINED BY DR. THOMPSON. AWARE OF LAB VALUES: WBC 34.3, HGB 8.9, HCT 26, PLATELET 111. ON IV ATB. NO ASE NOTED. AFEBRILE. BUN 46, CREA 1.9, GLUCOSE 422. PT ON IVF: D5 1/2 NS AT 100ML/HR. MD DISCUSSED PLAN OF CARE WITH FAMILY AT BEDSIDE. WILL CHANGE IVF TO 1/2NS AT 100ML./HR PER MD. WILL CONTINUE TO MONITOR.
[2017-08-04] MEDS: IV 1/2NS 1000 ML 1,000 ML IV PRN ×2 (11:42→22:29)
[2017-08-04] MEDS: ENOXAPARIN SODIUM 40 MG/0.4 ML DISP.SYRIN SQ SCH (12:25)
[2017-08-04] MEDS: MORPHINE SULFATE INJ 4 MG/ML DISP.SYRIN IM PRN (15:13)
[2017-08-04] MEDS: CEFTRIAXONE 1 G in IV D5W 50 ML IV SCH (16:23)
[2017-08-04] MEDS: LACTOBACILLUS RHAMNOSUS GG 1 EACH CAP.SPRINK PO SCH (16:23)
[2017-08-04] MEDS: FIBERSOURCE HN 1,000 ML BOTTLE NG PRN (16:24)
[2017-08-04] MEDS: NOREPINEPHRINE 16 MG in IV D5W 500 ML IV PRN (17:31)
--- NOTE | 2017-08-04 18:23 | NUR ---
RT NOTE PATIENT RECEIVED ON 7.5 TUBE @ 25 LIP LINE. NEW FI02 SETTINGS OF 45% TOLERATED WELL. NO SOB NOTED. ALARMS ON AND AUDIBLE. SMALL BLOOD TINGED SECRETIONS NOTED. PATIENT STABLE T/O SHIFT.
--- NOTE | 2017-08-04 18:34 | NUR ---
RN CLOSING NOTES NO SIGNIFICANT CHANGE NOTED. PT REMAINS INTUBATED, ON VENT. NO RESPIRATORY DISTRESS NOTED. NO SIGNS OF PAIN NOTED. RESTARTED ON LEVO. BP CLOSELY MONITORED. MIDLINE AND PICC IN PLACE. IVF INFUSING. ON GTF, TOLERATING FAIRLY. FC IN PLACE. KEPT CLEAN AND DRY. REPOSITIONED Q2. KEPT COMFORTABLE. WILL ENDORSE FOR CONTINUITY OF CARE.
--- NOTE | 2017-08-04 21:00 | NUR ---
RT RECEIVED PT INTUBATED ON [facility] VENT WITH NOTED SETTINGS. ETT 7.5 MARKED 25CM @ THE LIP. WASTE DISPOSAL PLANT OPERATOR DONE AND ETT SECURE W/ ANCHOR FAST. BILATERAL B/S. VENTS ALARMS CHECKED AND AUDIBLE. VENT PLUGGED IN RED OUTLET. SX WITH MOD THK HUERTA SECRETIONS. AMBU BAG NOTED AT THE HOB. NO RESP DISTRESS NOTED AT THIS TIME WILL CONTINUE TO MONITOR T/O SHIFT
[2017-08-04] MEDS: ATORVASTATIN 10 MG TABLET PO SCH (21:45)
[2017-08-05] VITALS (60 sets, daily range): BP systolic 89–155; BP diastolic 54–87
[2017-08-05] MEDS: IPRATROPIUM NEB FS 0.5 MG/2.5 ML AMPUL.NEB NEB SCH ×6 (03:15→23:04)
[2017-08-05] MEDS: ALBUTEROL FS 2.5 MG/0.5 ML VIAL.NEB NEB SCH ×6 (03:15→23:04)
[2017-08-05 05:50] LABS: HEMATOCRIT 27 % (33-45); HEMOGLOBIN 9.1 g/dL (11.5-14.8); LYMPHOCYTES # (AUTO) 0.9 /CMM (0.8-4.8); MEAN CORPUSCULAR HEMOGLOBIN 29 PG (26.0-33.0); MEAN CORPUSCULAR HGB CONC 33 g/dl (31.0-36.0); MEAN CORPUSCULAR VOLUME 88 fL (82-100); MONOCYTES # (AUTO) 0.1 /CMM (0.1-1.30); MONOCYTES % (AUTO) 0.3 % (2.0-12.0); NEUTROPHILS # (AUTO) 41.8 /CMM (1.8-8.9); NEUTROPHILS % (AUTO) 97.7 % (43.0-81.0); PLATELET COUNT (AUTO) 85 /CMM (150-450); RDW COEFFICIENT OF VARIATION 16.4 (11.5-15.0); RED BLOOD CELL COUNT(AUTO) 3.12 MIL/uL (4.0-5.2)
[2017-08-05 06:05] LABS: CALCIUM, SERUM 7.5 mg/dL (8.5-10.1); CREATININE 2.5 mg/dL (0.6-1.3); PHOSPHORUS 3.6 mg/dL (2.5-4.9); POTASSIUM 5.3 mmol/L (3.5-5.1)
[2017-08-05 06:15] LABS: WHITE BLOOD COUNT (AUTO) 42.8 K/uL (4.3-11.0)
[2017-08-05 06:43] LABS: BAND % (MANUAL) 8 % (0.0-5.0); LYMPHOCYTES % (MANUAL) 3 % (16-48); METAMYELOCYTES % 1 % (0-0); MONOCYTES % (MANUAL) 4 % (0-11.0); MYELOCYTES % 1 % (0-0); NEUTROPHILS % (MANUAL) 83 (42-76)
--- NOTE | 2017-08-05 06:50 | NUR ---
ACCREDITATION COORDINATOR - PT. REMAINS OBTUNDED. A COMPLETE BEDBATH WAS ADM. W/ORAL,ALF & SKIN CARE ADM. LEVOPHED GTT. IS NOW AT 12 MCG/MIN. PT. ALSO CONT. TO HAVE HIGH RESIDUALS W/FEEDING INFUSING AT 20CC/HR. CRITICAL LAB VALUE WAS PHONED W/WBC AT 42.8. POOR UOP VIA DUARTE. ENDORSED TO DAY SHIFT LETITIA CASTELAN. CONT. POC.
--- NOTE | 2017-08-05 07:25 | NUR ---
RT ALBUTEROL BREATHING TX WITHHELD AT THIS TIME DUE TO ELEVATED HR > 130. RN NOTIFIED AND AWARE. WILL CONTINUE TO MONITOR THE PATIENT FOR ANY CHANGES.
--- NOTE | 2017-08-05 07:30 | NUR ---
RN NOTES RECEIVED PT INTUBATED, ON VENT. ETT 7.0 25CM ON LIP. TOLERATING VENT SETTINGS: AC 20 TV 500 FIO2 45% PEEP 0. SUCTIONED FOR AIRWAY CLEARANCE. HOB ELEVATED. OG IN PLACE. ONGOING GTF FIBERSOURCE@20ML/HR NOTED WITH 40 ML RESDIUAL. NICOLETTE MIDLINE AND TOÑO PICC IN PLACE. IVF INFUSING 1/2 NS INUFUSING@100ML/HR. FC IN PLACE. NO UO NOTED. BLE ELEVATED. REPOSITIONED FOR COMFORT. WILL CONT TO MONITOR.
--- NOTE | 2017-08-05 09:15 | NUR ---
RN NOTES PT WAS SEEN AND EVALUATED BY DR GOLDSTEIN. CURRENT LABS AND VS DISCUSSED WITH . PT NOTED WITH LABORED BREATHING, PER DR GOLDSTEIN KEEP PT COMFORTABLE WITH MORPHINE 2MG PRN.
[2017-08-05] MEDS: ASPIRIN EC 81 MG TABLET.DR PO SCH (09:31)
[2017-08-05] MEDS: MORPHINE SULFATE INJ 4 MG/ML DISP.SYRIN IM PRN (09:31)
[2017-08-05] MEDS: LACTOBACILLUS RHAMNOSUS GG 1 EACH CAP.SPRINK PO SCH ×2 (09:32→16:09)
[2017-08-05 09:33] LABS: ABG OXYGEN SATURATION 91.3 % (92.0-98.5); ABG PH 7.364 (7.350-7.450); ABG PO2 67.6 mmHg (75.0-100.0); AaDO2 200.9 mmHg; COHb 0.2 % (0.5-1.5); O2Hb 89.3 % (94.0-97.0); PEEP,BG 0 cm H2O; SITE, ABG Right Radial; VT, ABG 500 mL
[2017-08-05] MEDS: IV 1/2NS 1000 ML 1,000 ML IV PRN (09:37)
[2017-08-05] MEDS: AZITHROMYCIN 250 MG TABLET PO SCH (10:53)
[2017-08-05] MEDS: ENOXAPARIN SODIUM 40 MG/0.4 ML DISP.SYRIN SQ SCH (12:09)
[2017-08-05] MEDS ORDERED: MORPHINE SULFATE PF DRIP 250 MG in IV D5W 240 ML IV PRN (12:30)
[2017-08-05] MEDS ORDERED: DC PROPOFOL WHEN EXTUBATED XX PRN (12:30)
--- NOTE | 2017-08-05 13:24 | NUR ---
RN NOTES DR LUNA AT BEDSIDE, SPOKE WITH SON LUIS EDUARDO. PER LUIS EDUARDO, FAMILY CAME UP TO A DECISION FOR TERMINAL EXTUBATION ZEINAB AROUND 10.15 AM. PER MD TO START MORPHINE DRIP 1 HOUR PRIOR TO EXTUBATION. VICKY CHARGE NURSE AWARE.
[2017-08-05] MEDS: NOREPINEPHRINE 16 MG in IV D5W 500 ML IV PRN (13:40)
[2017-08-05] MEDS: CEFTRIAXONE 1 G in IV D5W 50 ML IV SCH (16:09)
--- NOTE | 2017-08-05 17:27 | NUR ---
RT PT RECEIVED ORALLY INTUBATED WITH 7.5 ETT, SECURED AT 25 CM AT THE MID LIP ON [facility] VENT WITH SETTINGS PER MD ORDER. DIAL LATHE OPERATOR DONE. BILATERAL BREATH SOUNDS ON AUSCULTATION. AMBU BAG AT HOB. SX SMALL AMOUNTS OF THICK BLOOD-TINGED SECRETIONS. TX GIVEN ORDERED. NO ADVERSE REACTIONS NOTED. NO SOB OR RESP DISTRESS NOTED THROUGHOUT SHIFT. WILL CONTINUE TO MONITOR THE PATIENT FOR ANY CHANGES. Addendum: 08/05/17 at 1736 by MARK MANCERA RT Amended: Links added.
[2017-08-05] MEDS: FIBERSOURCE HN 1,000 ML BOTTLE NG PRN (17:28)
--- NOTE | 2017-08-05 18:45 | NUR ---
RN CLOSING NOTES NO SIGNIFICANT CHANGE NOTED. PT REMAINS INTUBATED, ON VENT. NO RESPIRATORY DISTRESS NOTED. NO SIGNS OF PAIN NOTED. LEVO OFF. BP STABLE AT THIS TIME. MIDLINE AND PICC IN PLACE. IVF INFUSING. FC IN PLACE. 25 ML UO NOTED DURING THE SHIFT. KEPT CLEAN AND DRY. REPOSITIONED Q2. KEPT COMFORTABLE. SON BRUNA AT BEDSIDE.
[2017-08-05] MEDS: ATORVASTATIN 10 MG TABLET PO SCH (21:43)
[2017-08-06] VITALS (35 sets, daily range): BP systolic 85–129; BP diastolic 36–93
[2017-08-06] MEDS: ALBUTEROL FS 2.5 MG/0.5 ML VIAL.NEB NEB SCH (03:48)
[2017-08-06] MEDS: IPRATROPIUM NEB FS 0.5 MG/2.5 ML AMPUL.NEB NEB SCH (03:49)
[2017-08-06] MEDS ORDERED: IV 1/2NS 1000 ML 1,000 ML IV PRN (08:00)
[2017-08-06] MEDS ORDERED: MORPHINE SULFATE PF DRIP 250 MG in IV D5W 240 ML IV PRN (08:30)
--- NOTE | 2017-08-06 09:37 | NUR ---
RN NOTES DR HENDERSON AT BEDSIDE, MORPHINE DRIP STARTED. PER MD START DOSERATE MORPHINE 5MG/HR TO KEEP PT COMFORTABLE. ALL FAMILY MEMBERS AT BEDSIDE.
[2017-08-06] MEDS ORDERED: MORPHINE SULFATE INJ 4 MG/ML DISP.SYRIN IV STA (10:44)
[2017-08-06] MEDS ORDERED: LORAZEPAM INJ 2 MG/ML VIAL IV PRN (11:00)
[2017-08-06] MEDS ORDERED: LORAZEPAM INJ 2 MG/ML VIAL IV ONE (11:00)
--- NOTE | 2017-08-06 11:10 | NUR ---
Pt terminally extubated per Peleg MD order. RN notified. Family at bedside.
--- NOTE | 2017-08-06 11:10 | NUR ---
RN NOTES PT EXTUBATED. MORPHINE DRIP INCREASED TO 10MG/HR FOR PATIENT'S COMFORT. RT AT BEDSIDE. FAMILY MEMBERS AT BEDSIDE. CHARGE NURSE LUCIANA AWARE OF EXTUBATION.
--- NOTE | 2017-08-06 11:16 | NUR ---
PT PRONOUNCED . COMFORT MEASURES ONLY. FAMILY ALL AT BEDSIDE. ASYSTOLE ON MONITOR. NO AUDIBLE HEART TONES. NO OBTAINABLE BP. NO RESPIRATORY EFFORT. PUPILS FIXED AND DILATED. DR THOMPSON NOTIFIED
--- NOTE | 2017-08-06 13:00 | NUR ---
BODY TO VALENTINE
== END 2017-08-06 11:16 | disposition expired | DRG 207 ==
LOC: ER 12:16 → TELE 16:41 → MED 07-27 09:22 → ICU 07-27 21:40
PROVIDERS: ADMIT Family Medicine; ATTEND Family Medicine
PROC: 0BH18EZ Insertion of Endotracheal Airway into Trachea, Via Natural or Artificial Opening Endoscopic (ICD-10-PCS; principal; 2017-07-27)
PROC: 5A1955Z Respiratory Ventilation, Greater than 96 Consecutive Hours (ICD-10-PCS; 2017-07-27)
PROC: 05H633Z Insertion of Infusion Device into Left Subclavian Vein, Percutaneous Approach (ICD-10-PCS; 2017-07-30)
PROC: B547ZZA Ultrasonography of Left Subclavian Vein, Guidance (ICD-10-PCS; 2017-07-30)
PROC: 5A09357 Assistance with Respiratory Ventilation, Less than 24 Consecutive Hours, Continuous Positive Airway Pressure (ICD-10-PCS; 2017-08-02)
PROC: 5A2204Z Restoration of Cardiac Rhythm, Single (ICD-10-PCS; 2017-08-03)
DX: J96.01 Acute respiratory failure with hypoxia (principal); N17.0 Acute kidney failure with tubular necrosis; Z66 Do not resuscitate; Z51.5 Encounter for palliative care; G93.1 Anoxic brain damage, not elsewhere classified; G93.41 Metabolic encephalopathy; J18.9 Pneumonia, unspecified organism; E87.2 Acidosis; I11.0 Hypertensive heart disease with heart failure; I27.20 Pulmonary hypertension, unspecified; J44.0 Chronic obstructive pulmonary disease with (acute) lower respiratory infection; J44.1 Chronic obstructive pulmonary disease with (acute) exacerbation; E87.1 Hypo-osmolality and hyponatremia; Z99.81 Dependence on supplemental oxygen; M41.9 Scoliosis, unspecified; J96.02 Acute respiratory failure with hypercapnia; D72.829 Elevated white blood cell count, unspecified; E78.5 Hyperlipidemia, unspecified; Z87.891 Personal history of nicotine dependence; Z79.899 Other long term (current) drug therapy; Z79.82 Long term (current) use of aspirin; D63.8 Anemia in other chronic diseases classified elsewhere; J20.8 Acute bronchitis due to other specified organisms; T38.0X5A Adverse effect of glucocorticoids and synthetic analogues, initial encounter; Y92.009 Unspecified place in unspecified non-institutional (private) residence as the place of occurrence of the external cause; I70.0 Atherosclerosis of aorta; I73.9 Peripheral vascular disease, unspecified; E87.5 Hyperkalemia; I99.8 Other disorder of circulatory system
CPT/HCPCS: 31720; 36415; 36600; 71045-TC; 71250-TC; 80048-TC; 80061-TC; 82803-TC; 82962-TC; 83735-TC; 83880; 84100-TC; 84484-TC; 85025-TC; 85730-TC; 87040-TC; 87081-TC; 87400; 93307-TC; 93926-TC; 93970-TC; 94002-TC; 94003-TC; 94640-TC; 94760-TC; 94799-TC; 95819-TC; 99082-TC; A4606; J0171; J0456; J0696; J1644; J1650; J1940; J1956; J2060; J2250; J2270; J2274; J2920; J2930; J3010; J3475; J3480; J3490; J7030; J7040; J7042; J7050; J7060; Q9967; Z7610